=== PATIENT | male | born 1975 | race Caucasian/White ===

== ENCOUNTER 2020-11-19 09:21 | Outpatient (CLI) | payer MEDICARE, SELFPAY ==
[2020-11-19 10:57] LABS: Basophils % 0.8 %; Eosinophils # 0.2 10^3/uL (0.0-0.8); Eosinophils % 4.3 %; Hematocrit 41.3 % (42.0-52.0); Hemoglobin 13.9 g/dL (11.7-16.6); Lymphocytes # 0.8 10^3/uL (0.8-4.8); Lymphocytes % 16.5 %; Mean Corpuscular HGB Conc 33.7 g/dL (30.0-36.0); Mean Corpuscular Hemoglobin 30.6 pg (28.0-34.0); Mean Platelet Volume 10.8 fL (7.4-10.4); Monocytes # 0.3 10^3/uL (0.2-0.9); Neutrophils # 3.51 10^3/uL (1.8-7.7); Neutrophils % 72.2 %; Nucleated Red Blood Cells % 0 %; Platelet Count 55 10^3/cmm (130-400); Red Blood Count 4.54 10^6/uL (4.1-5.3); Red Cell Distribution Width 14.5 % (12.1-15.1); White Blood Count 4.9 10^3/uL (4.0-10.0)
--- NOTE | 2020-11-19 16:10 | ONC CON_ITS ---
Dr. Wyatt New Patient Note Patient: Jigar Connell Unit #: [id number]: [id number] Dicatated By: yNa Wyatt M.D.Date of Visit: November 19, 2020 Onc MED New Patient/Consult Referring Physician: Luisa Delgado History of Present Illness: Mr. 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 Patient has history of chronic back pain and arthritis for which he takes ibuprofen/hydrocodone-based pain medication from pain clinic, patient said because of liver he cannot take Tylenol. Patient is complaining of ecchymosis but no petechiae especially on upper extremities and lower extremities. Patient denies any more alcohol use, quit drinking about 5 years ago, smoked 1 pack a day, patient not aware whether he had large spleen or not. Patient denies any night sweats denies any weight loss denies any recurrent fever, denies any jaundice. Denies any nosebleed or gum bleed denies any melena or hematochezia Past Medical History: Mr. Connell's medical history consists of alcohol abuse, alcoholic cirrhosis, back pain, chronic obstructive pulmonary disease, degenerative disease of the spine, gastroesophageal reflux disease, and hypertension. Past Surgical History: There is no documented surgical history. Medications: Albuterol Sulfate Aerosol Powder, Breath Activated Inhalation, Atenolol 1 Tablet (of 50 mg) Oral daily, Folic Acid 1 Tablet (of 1 mg) Oral daily, Furosemide 1 Tablet (of 40 mg) Oral b.i.d., Gabapentin 1 Capsule (of 400 mg) Oral t.i.d. & at bedtime, HYDROcodone-Ibuprofen 1 Tablet (of 7.5-200 mg) Oral q 4 hours, Incruse Ellipta Aerosol Powder, Breath Activated Inhalation, K-Tab 1 Tablet (of 10 meq) Tablet, controlled release Oral b.i.d., Multivitamin Gummies Mens 1 Tablet Tablet, chewable Oral daily, Pantoprazole Sodium 1 Tablet (of 40 mg) Tablet, enteric coated Oral daily, Spironolactone 1 Tablet (of 50 mg) Oral daily, Tamsulosin HCl 1 Capsule (of 0.4 mg) Oral daily Allergies: Lisinopril, Penicillins, Sulfa Antibiotics, and Tylenol. Social History: Mr. Connell is legally . He is a daily smoker who smokes 0.5 packs/day. Recovering Alcoholic sober for 5 years. Family History: Mr. Connell's mother at age 81: DEMENTIA. Mr. Connell's father at age 62: myocardial infarction. Mr. Connell has 1 brother who is . He has 3 sisters: 2 alive, 1 . Review Of Symptoms: Review of Systems is not available for this patient. Vital Signs: Performed on November 19, 2020 11:22: 10, 8, 39.00 (HIGH), 2.22 sq.m, 67 in, 96 %, 97 /min, 18 /min, 144/72 mm(hg) (HIGH), 98.2 F (LOW), and 249 lbs (HIGH). Performance Status: 1 - No physically strenuous activity, but ambulatory and able to carry out light or sedentary work (e.g. office work, light house work). (ECOG) Physical Examination: ENMT - No mouth sores, no thrush, no jaundice no cervical lymphadenopathy, poor oral hygiene, Respiratory - Poor air entry otherwise clear, Cardiovascular - Regular rate and rhythm of heart, Abdomen - Soft, bowel sounds present, Extremities - No visible edema but old healing ecchymosis. Lab/Imaging: Most recent lab results are not available for this patient. 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 Other possibility could be chronic ITP or patient has history of heavy alcohol abuse in the past so primary marrow disorder like MDS but less likely especially with normal white blood count and hemoglobin. Or medication like lisinopril. Alcoholic liver cirrhosis diagnosing 2014 or 16 History of esophageal varices status post banding Chronic back pain now being managed by pain clinic Plan: . Discussed with patient regarding his labs white blood count 4.9 hemoglobin 13.9 hematocrit 41.3 platelets 55,000 with a normal differential Clinically, patient doing well with no new signs symptom suggestive of gross bleeding but patient has old healing ecchymosis which could be due to moderate thrombocytopenia but less likely as in patient with thrombocytopenia due to splenic sequestration usually they have young/large platelets which are more active than mature platelets but patient is taking ibuprofen which can affect platelet clumping thus ecchymosis. Patient was advised to stop taking ibuprofen but rely on hydrocodone alone and he need to wait for 2 weeks before he consider any dental procedure as NSAIDs affect platelets for the life which is about 10 to 14 days. , At this point we will get abdominal sonogram to assess spleen size and then patient return to clinic in 2 weeks with CBC. If his platelet count continues to drop, may consider bone marrow evaluation Signed By: Nya Wyatt M.D. <<Signature on File>>
== END 2020-11-19 09:22 | disposition home or self-care (01) ==
LOC: ONCMED 09:29
PROVIDERS: PCP Nurse Practitioner; Visit Provider Internal Medicine Hematology & Oncology
DX: D69.6 Thrombocytopenia, unspecified (principal); K70.30 Alcoholic cirrhosis of liver without ascites; I85.00 Esophageal varices without bleeding; G89.29 Other chronic pain; M54.5 Low back pain; Z79.899 Other long term (current) drug therapy
CPT/HCPCS: 85025; 99204

== ENCOUNTER 2022-10-27 10:58 | Emergency (ER) | payer MEDICARE, MEDICAID, SELFPAY ==
[2022-10-27] VITALS (18 sets, daily range): BP systolic 124–149; BP diastolic 57–87; PULSE 74–130; RESP 14–18; O2SAT 94–100; BMI 30.4
[2022-10-27 11:42] LABS: Basophils % 0.2 %; Eosinophils % 0.3 %; Hematocrit 43.7 % (42.0-52.0); Hemoglobin 14.9 g/dL (11.7-16.6); Lymphocytes # 0.5 10^3/uL (0.8-4.8); Lymphocytes % 4.4 %; Mean Corpuscular HGB Conc 34.1 g/dL (30.0-36.0); Mean Corpuscular Hemoglobin 30.9 pg (28.0-34.0); Mean Corpuscular Volume 90.7 fl (80-94); Monocytes # 0.6 10^3/uL (0.2-0.9); Monocytes % 4.8 %; Neutrophils # 11.09 10^3/uL (1.8-7.7); Neutrophils % 89.7 %; Nucleated Red Blood Cells % 0 %; Platelet Count 57 10^3/cmm (130-400); Red Blood Count 4.82 10^6/uL (4.1-5.3); White Blood Count 12.4 10^3/uL (4.0-10.0)
--- NOTE | 2022-10-27 12:00 | CTR_ITS ---
PROCEDURE INFORMATION: Exam: CT Abdomen And Pelvis With Contrast Exam date and time: 10/27/2022 2:09 PM Age: 47 years old Clinical indication: Abdominal pain; Generalized; Additional info: Cirrhosis, abd pain and distension TECHNIQUE: Imaging protocol: Computed tomography of the abdomen and pelvis with contrast. Radiation optimization: All CT scans at this facility use at least one of these dose optimization techniques: automated exposure control; mA and/or kV adjustment per patient size (includes targeted exams where dose is matched to clinical indication); or iterative reconstruction. Contrast material: OMNI 350; Contrast volume: 100 ml; Contrast route: INTRAVENOUS (IV); REPORTING DATA: Count of CT and Cardiac NM exams in prior 12 months: This patient has received 0 known CTs and 0 known cardiac nuclear medicine studies in the 12 months prior to the current study. COMPARISON: CT abdomen pelvis w con* [id number] 11/13/2016 7:04 AM RADIATION DOSE METRICS: Total DLP (mGy-cm): 730 FINDINGS: Lungs: There is a noncalcified pulmonary nodule in the right lower lobe visible on series 3, image 7 measuring 5 mm. Liver: The liver has a nodular surface and there is relative hypertrophy of the left and caudate lobe consistent with cirrhosis. There is multifocal nodular hyperenhancement involving the central aspect of the liver. The margins of the lesion are lobulated and ill-defined. The lesion measures up the 12 x 6 cm. Gallbladder and bile ducts: The gallbladder is distended. The wall is thin. No stones are seen. There is ectasia of the common bile duct and central intrahepatic ducts. Pancreas: There is moderate atrophy of the pancreas. Spleen: The spleen is markedly enlarged. Adrenal glands: The adrenal glands are unremarkable. Kidneys and ureters: The kidneys are unremarkable. No hydronephrosis or stones. No ureteral dilation. Stomach and bowel: There are large submucosal varices in the gastric fundus. There is a small volume of low-density fluid in the gastric lumen. There is diffuse gastric mucosal hyperemia and mild thickening. The small bowel is nondilated. There is marked mucosal thickening and mucosal hyperemia with surrounding mesenteric edema involving the distal ileum, sparing the terminal ileum. There is mild diffuse colonic mucosal thickening without pericolonic edema. Probable portal colopathy. There is mild distal descending and sigmoid colonic diverticulosis without evidence of diverticulitis. Appendix: The appendix is normal. Intraperitoneal space: Moderate ascites. There is no intraperitoneal free air. Vasculature: There is partial thrombus in the superior mesenteric vein and central aspect of the portal vein visible on axial series 3, image 30 through 39. The splenic vein is patent. There is no visible intrahepatic portal venous thrombus. The aorta is unremarkable. There is no aneurysm. Large submucosal varices at the gastric fundus. Lymph nodes: There is no lymphadenopathy in the retroperitoneum, mesentery, pelvis or inguinal regions. Urinary bladder: The urinary bladder is unremarkable. Reproductive: The prostate and seminal vesicles are unremarkable. Bones/joints: There is moderate degenerative disease in the lumbar spine. There is a focal disc protrusion at L4-L5 producing severe spinal stenosis. The pelvis and hips are unremarkable. Soft tissues: The abdominal wall is intact. CT/CT abdomen pelvis w con* [id number] IMPRESSION: 1. Marked distal ileitis, sparing the terminal ileum consistent with infectious or inflammatory enteritis. 2. Probable gastritis. 3. Cirrhosis with multifocal nodular hyperenhancement involving the central aspect of the liver suspicious for hepatocellular carcinoma. Recommend liver MRI. 4. Partial thrombosis of the superior mesenteric and portal veins without significant luminal narrowing. 5. Marked splenic enlargement. 6. Large submucosal varices in the gastric fundus. No sign of intraluminal bleeding. 7. Moderate ascites. 8. 5 mm right lower lobe pulmonary nodule.For patients at low risk (minimal or absent history of smoking and of other known risk factors), no routine follow-up is indicated. For patients at high risk (history of smoking or of other known risk factors), consider optional CT Chest at 12 months. (Reference: Frank) 9. Incidental findings above. REFERENCES: Frank Garza et al. Guidelines for Management of Incidental Pulmonary Nodules Detected on CT Images: From the Fleischner Society 2017. Radiology. 2017;284(1):228-243.
--- NOTE | 2022-10-27 12:03 | ED_ITS ---
HPI - Abdominal Pain General: Chief Complaint: Abdominal Pain Stated Complaint: ABDOMINAL PAIN/ LIVER FAILURE Time Seen by Provider: 10/27/22 10:59 History of Present Illness: Patient presents to the ER by EMS with complaints of upper abdominal pain. Patient now states the pain is all over the abdomen as well as distention and bloating. Patient does have a history of known alcoholic cirrhosis with thrombocytopenia. 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 She states this pain has started worsening this morning with no known cause. She did receive 100 of fentanyl and 10 of morphine IV per EMS. MD elicited complaint: abdominal pain Pertinent past history: other (Alcoholic cirrhosis and thrombocytopenia) Onset (ago): hour(s) (Started this morning) Pain Consistency: constant Location: Diffuse Severity: moderate Radiation: none Migration to: no migration Exacerbating factors: nothing Relieving factors: nothing Associated Symptoms: Reports nausea and vomiting; Denies chills, diarrhea, dysuria and fever(s) Treatments prior to arrival: other (7.5 mg of hydrocodone 4 times a day as well as 100 mcg of fentanyl and 10 mg morphine per EMS on route) Review of Systems General: Reports: 10 or more systems reviewed and unremarkable except in HPI and below Const: Denies: fever(s) or chills Eyes: Denies: change in vision or photophobia ENMT: Denies: throat pain or odynophagia Card: Denies: chest pain, palpitations or irregular heart rhythm Resp: Denies: dyspnea, productive cough or non-productive cough GI: Reports: abdominal pain, nausea and vomiting; Denies: diarrhea : Denies: flank pain, difficulty urinating or dysuria Musc: Denies: neck pain or back pain Skin/Breast: Denies: rash, pruritus or erythema Neuro: Denies: headache(s) or numbness in extremities PFS ED PFSH: Medical History Abnormal laboratory test Liver cirrhosis Thrombocytopenia Physical Exam Const: COMMON NORMALS: average body habitus, patient oriented x3, no limitations, healthy appearing, alert and well nourished HENMT: COMMON NORMALS: normocephalic, atraumatic, hearing grossly normal bilaterally, external ears normal, Normal external nose present and moist oral mucous membranes HEAD & SCALP: normocephalic and atraumatic NOSE: Normal external nose present EXTERNAL EAR: Yes external ears normal Eye: COMMON NORMALS: Equal, round and reactive pupils present, EOMs intact bilaterally, conjunctivae normal and no scleral icterus CONJUNCTIVA: Yes conjunctivae normal PUPIL: Yes Equal, round and reactive pupils present Neck/C-Spine: COMMON NORMALS: full ROM, no lymphadenopathy, supple, no meningeal signs, no JVD and Thyroid normal THYROID: Thyroid normal Lymph: LYMPHATIC: no lymphadenopathy noted Chest: COMMONS NORMALS: normal inspection of the chest and normal palpation of entire chest wall Resp: COMMON NORMALS: normal respiratory effort, No retractions, No use of accessory muscles and clear to auscultation bilaterally AUSCULTATION: clear to auscultation bilaterally Cardio: COMMON NORMALS: no JVD, regular rate, regular rhythm, S1 normal heart sound present and S2 normal heart sound present RATE: regular rate RHYTHM: regular rhythm HEART SOUNDS: S1 normal heart sound present and S2 normal heart sound present GI: COMMON NORMALS: Soft to palpation INSPECTION: Yes Anasarca and Yes abdominal distension AUSCULTATION: Yes normoactive bowel sounds PALPATION: Yes Soft to palpation, Yes Firmness to palpation present (GI) and Yes Tenderness to palpation present (GI) : COMMON NORMALS: Yes no CVA tenderness BLADDER/KIDNEY EXAM: Yes no CVA tenderness Back/Pelvis: COMMON NORMALS: no CVA tenderness Neuro: COMMON NORMALS: patient oriented x3 SENSORIUM/ORIENTATION: Yes alert MENINGEAL SIGNS: Yes no meningeal signs Course Vital Signs: Vital signs: Vital Signs Pulse Rate 122 H 10/27/22 20:20 Respiratory Rate 18 10/27/22 20:20 Blood Pressure 124/87 10/27/22 20:20 Pulse Oximetry 95 10/27/22 20:20 Oxygen Delivery Me thod Room Air 10/27/22 11:03 MDM - Abdominal Pain Medical Decision Making Patient presents with abdominal pain ascites and alcoholic cirrhosis. Physical exam was performed lab work was obtained which revealed a platelet count of 57, total bilirubin 2.1 AST [address] showed marked distal ileitis, cirrhosis with multi nodular enhancement suspicious for hepatocellular carcinoma. Partial thrombosis of superior mesenteric and portal veins, marked splenic enlargement, large submucosal varices in the gastric fundus, moderate ascites. Case was discussed with Dr. Phillips who thought he needed a liver biopsy and if he start ed bleeding from the varices we would have no way to treat him. She suggested we transfer him out. Patient is already [facility] a [facility] Differential Diagnosis Likely abdominal pain; Unlikely acute appendicitis, calculus of kidney, constipation, diverticulitis, endometriosis, gastroenteritis, pancreatitis or small bowel obstruction Medical Records I reviewed the patient's medical records. Lab Data I reviewed the patient's lab results. 10/27/22 11:15 10/27/22 12:44 Labs/Radiology: Radiology Impressions Abdomen/Pelvis CT 10/27/22 12:00 IMPRESSION: 1. Marked distal ileitis, sparing the terminal ileum consistent with infectious or inflammatory enteritis. 2. Probable gastritis. 3. Cirrhosis with multifocal nodular hyperenhancement involving the central aspect of the liver suspicious for hepatocellular carcinoma. Recommend liver MRI. 4. Partial thrombosis of the superior mesenteric and portal veins without significant luminal narrowing. 5. Marked splenic enlargement. 6. Large submucosal varices in the gastric fundus. No sign of intraluminal bleeding. 7. Moderate ascites. 8. 5 mm right lower lobe pulmonary nodule.For patients at low risk (minimal or absent history of smoking and of other known risk factors), no routine follow-up is indicated. For patients at high risk (history of smoking or of other known risk factors), consider optional CT Chest at 12 months. (Reference: Frank) 9. Incidental findings above. REFERENCES: Frank Garza, et al. Guidelines for Management of Incidental Pulmonary Nodules Detected on CT Images: From the Fleischner Society 2017. Radiology. 2017;284(1):228-243. Laboratory Results WBC 12.4 10^3/uL (4.0-10.0) H 10/27/22 11:15 RBC 4.82 10^6/uL (4.1-5.3) 10/27/22 11:15 Hgb 14.9 g/dL (11.7-16.6) 10/27/22 11:15 Hct 43.7 % (42.0-52.0) 10/27/22 11:15 MCV 90.7 fl (80-94) 10/27/22 11:15 MCH 30.9 pg (28.0-34.0) 10/27/22 11:15 MCHC 34.1 g/dL (30.0-36.0) 10/27/22 11:15 RDW 17.0 % (12.1-15.1) H 10/27/22 11:15 Plt Count 57 10^3/cmm (130-400) L 10/27/22 11:15 MPV TNP 10/27/22 11:15 Neut % (Auto) 89.7 % 10/27/22 11:15 Lymph % (Auto) 4.4 % 10/27/22 11:15 Rooks % (Auto) 4.8 % 10/27/22 11:15 Eos % (Auto) 0.3 % 10/27/22 11:15 Baso % (Auto) 0.2 % 10/27/22 11:15 Neut # (Auto) 11.09 10^3/uL (1.8-7.7) H 10/27/22 11:15 Lymph # (Auto) 0.5 10^3/uL (0.8-4.8) L 10/27/22 11:15 Rooks # (Auto) 0.6 10^3/uL (0.2-0.9) 10/27/22 11:15 Eos # (Auto) 0.0 10^3/uL (0.0-0.8) 10/27/22 11:15 Baso # (Auto) 0.0 10^3/uL (0.0-0.1) 10/27/22 11:15 Nucleated RBC % (auto) 0 % 10/27/22 11:15 Nucleated RBCs # 0.0 /100WBC 10/27/22 11:15 PT 17.30 SECONDS (12.1-14.9) H 10/27/22 12:44 INR 1.37 (0.8-1.2) H 10/27/22 12:44 APTT 26.9 SECONDS (23.9-36.7) 10/27/22 12:44 Sodium 137 mmol/L (136-145) 10/27/22 12:44 Potassium 3.0 mmol/L (3.5-5.1) L 10/27/22 12:44 Chloride 98 mmol/L (98-107) 10/27/22 12:44 Carbon Dioxide 26 mmol/L (22-29) 10/27/22 12:44 Anion Gap 16.0 (5-19) 10/27/22 12:44 BUN 11 mg/dL (6-20) 10/27/22 12:44 Creatinine 0.8 mg/dL (0.7-1.2) 10/27/22 12:44 GFR Calculation 102.7 mL/min (90-130) 10/27/22 12:44 Glucose 178 mg/dL (65-115) H 10/27/22 12:44 Calculated Osmolality 288 mOsm/kg (285-295) 10/27/22 12:44 Calcium 9.3 mg/dL (8.5-10.5) 10/27/22 12:44 Total Bilirubin 2.1 mg/dL (0.15-1.2) H 10/27/22 12:44 AST 44 U/L (0-40) H 10/27/22 12:44 ALT 60 U/L (0-41) H 10/27/22 12:44 Alkaline Phosphatase 93 U/L (40-130) 10/27/22 12:44 Total Protein 6.1 g/dL (6.6-8.7) L 10/27/22 12:44 Albumin 3.6 g/dL (3.5-5.2) 10/27/22 12:44 Globulin 2.5 g/dL (1.3-4.6) 10/27/22 12:44 Lipase 18 U/L (13-60) 10/27/22 12:44 Discharge Plan Discharge Patient Disposition: Xfer Short-Term Hosp Clinical Impression: Hepatocellular carcinoma, Superior mesenteric vein thrombosis, Portal vein thrombosis, Ascites, Liver cirrhosis Condition: Stable Discharge Orders: Transfer Out of Facility (Order); Ordered 10/27/22 Ordered By: Kenneth Post Referrals: Luisa Delgado FNP [Primary Care Provider] - Coding Level of Care Code ED Sports Physician for Enochg Tom
[2022-10-27] MEDS: ondansetron 2 mg/ML SDV 2 mL 4 MG IVP (13:07)
[2022-10-27] MEDS: morphine 4 mg/mL SDV 1 mL IVP ×3 (13:07→20:10)
--- NOTE | 2022-10-27 13:08 | PC.PHAR ---
Addendum entered by Jenelle Strauss 10/27/22 13:12: alternates breo and trelegy inhalers Original Note: pts family verified pts medications-pts family states the pts levothyroxine 25mcg daily was dced ext shows last filled 08/12/22 30d/s-pts family states they pt is still taking constulose 15ml tid family states the pt had build up ext shows last filled 08/13/22 30d/s-pts family states the pt is taking kcl 10meq bid ext shows last filled 08/23/22 90d/s 10meq tid-pts family states the pt alternates the incruse and trelegy inhalers-notes are made in the pharmacy comments
[2022-10-27 13:15] LABS: Alanine Aminotransferase 60 U/L (0-41); Albumin Level 3.6 g/dL (3.5-5.2); Alkaline Phosphatase 93 U/L (40-130); Aspartate Amino Transferase 44 U/L (0-40); Blood Urea Nitrogen 11 mg/dL (6-20); Calcium 9.3 mg/dL (8.5-10.5); Carbon Dioxide 26 mmol/L (22-29); Chloride 98 mmol/L (98-107); Globulin 2.5 g/dL (1.3-4.6); Glomerular Filtration Rate 102.7 mL/min (90-130); Glucose 178 mg/dL (65-115); Lipase 18 U/L (13-60); Osmolality Calculated 288 mOsm/kg (285-295); Sodium 137 mmol/L (136-145); Total Bilirubin 2.1 mg/dL (0.15-1.2); Total Protein 6.1 g/dL (6.6-8.7)
[2022-10-27 13:37] LABS: INR 1.37 (0.8-1.2); Partial Thromboplastin Time 26.9 SECONDS (23.9-36.7)
[2022-10-27] MEDS: sodium chloride 0.9% 1,000 ML 999 ML IV (13:39)
[2022-10-27] MEDS: metoclopramide 5 mg/mL SDV 2 mL 10 MG IVP (16:29)
[2022-10-27] MEDS: piperacillin-tazobactam 3.375 GM in sodium chloride 0.9% (plus) 50 ML IV (16:30)
--- NOTE | 2022-10-27 16:49 | PM.CONSULT ---
Providers/Reason For Consult Consulting Physician/Specialty*: Kylie Phillips MD/ Hospitalist Reason for Consult*: Gi bleed, SMV thrombosis Requesting Physician: Dr. Post/ ED Primary Care Provider: OLEG Edwards History of Present Illness History of Present Illness Jigar Connell is a 47 year old male with known history of liver cirrhosis, states that he follows with Dr. MARTÍNEZ in [place]. He presents to the emergency room today due to abdominal pain that has been bothering him over the past 2 days, especially worsened since last night. He is also complaining of bleeding bright red blood per rectum since yesterday. Denies any hematemesis. States that he has not had an appetite for many months. He has been consistently losing weight. His cirrhosis has been attributed to alcohol use previously. He has known chronic thrombocytopenia. CT of his abdomen and pelvis today has revealed advanced liver cirrhosis, hepatocellular carcinoma signs of portal hypertension, multiple varices, SMV thrombosis, enteritis. He does not have any past medical history of known cancer, the discovery of a possible hepatocellular carcinoma is new for him. Review of Systems General: Reports: 10 or more systems reviewed and unremarkable except in HPI and below Const: Denies: fever(s), chills or body aches Eyes: Denies: change in vision, blurry vision or photophobia ENMT: Reports: hoarseness; Denies: throat pain, enlarged tonsils, odynophagia or nasal congestion Card: Denies: chest pain, palpitations, irregular heart rhythm, edema, swelling of feet/ankles, lightheadedness, pre-syncope, dyspnea on exertion or orthopnea Resp: Denies: dyspnea, productive cough, non-productive cough, wheezing, stridor, pain on inspiration, change in phlegm color, hemoptysis or chest congestion GI: Denies: abdominal pain, nausea, vomiting, hematemesis, coffee ground emesis, dysphagia, heartburn, diarrhea, constipation, GI cramping, change in stool character, hematochezia or melena : Denies: flank pain, dysuria, urinary frequency, urinary urgency, urinary hesitancy or hematuria Musc: Denies: neck pain, back pain, extremity pain, joint swelling, joint warmth or deformity Neuro: Denies: headache(s), numbness in extremities, weakness in extremities, sensory changes, difficulty walking, frequent falls, dizziness, vertigo, behavioral changes, Slurred speech present or seizure-like activity Psych: Denies: anxiety, depression, suicidal ideation or homicidal ideation Endo: Denies: polyuria, polydipsia, tired all the time, cold intolerance or hot flashes Ollie/Lymph: Denies: easy bruising or easy bleeding Medications/Allergies Home Medications Medication Instructions Recorded Confirmed Last Taken Type hydrocodone 7.5 mg-ibuprofen 200 1 - 2 tab PO Q4H PRN Pain 11/13/20 10/27/22 Unknown History mg tablet albuterol sulfate 90 mcg/actuation 2 puff inhalation QID PRN 10/27/22 10/27/22 Unknown History aerosol inhaler Shortness Of Breath atenolol 50 mg tablet 50 mg PO DAILY 10/27/22 10/27/22 Unknown History cyclobenzaprine 10 mg tablet 10 mg PO Q8H PRN Muscle Spasm 10/27/22 10/27/22 Unknown History fluticasone fur. 200 mcg-umeclid 1 inh inhalation DAILY 10/27/22 10/27/22 Unknown History 62.5 mcg-vilant 25 mcg inhalat.powder (Trelegy Ellipta) fluticasone furoate 200 1 inh inhalation DAILY 10/27/22 10/27/22 Unknown History mcg-vilanterol 25 mcg/dose inhalation powder (Breo Ellipta) fluticasone propionate 50 2 spray intranasal DAILY 10/27/22 10/27/22 Unknown History mcg/actuation nasal spray,suspension folic acid 1 mg tablet 1 mg PO DAILY 10/27/22 10/27/22 Unknown History furosemide 40 mg tablet 40 mg PO BID 10/27/22 10/27/22 Unknown History gabapentin 400 mg capsule 400 mg PO Q6H 10/27/22 10/27/22 Unknown History lactulose 10 gram/15 mL oral 15 ml PO TID 10/27/22 10/27/22 Unknown History solution (Constulose) loratadine 10 mg tablet 10 mg PO QAM 10/27/22 10/27/22 Unknown History metformin 500 mg tablet,extended 500 mg PO BID 10/27/22 10/27/22 Unknown History release 24 hr multivitamin 1 tab PO DAILY 10/27/22 10/27/22 Unknown History pantoprazole 40 mg tablet,delayed 40 mg PO DAILY 10/27/22 10/27/22 Unknown History release yzixeilfvwnys-UJ-khkqwutryqcnw-guaif 20 ml PO BEDTIME 10/27/22 10/27/22 Unknown History 10 mg-20 mg-650 mg/20 mL oral liq (Zlqk-Uid-Znua Throat) potassium chloride 10 mEq 10 meq PO BID 10/27/22 10/27/22 Unknown History tablet,extended release ropinirole 2 mg tablet 2 mg PO TID 10/27/22 10/27/22 Unknown History spironolactone 50 mg tablet 50 mg PO DAILY 10/27/22 10/27/22 Unknown History tamsulosin 0.4 mg capsule 0.4 mg PO BID 10/27/22 10/27/22 Unknown History testosterone cypionate 200 mg/mL 200 mg IM .EVERY 3 WEEKS 10/27/22 10/27/22 Unknown History intramuscular oil umeclidinium 62.5 mcg/actuation 1 inh inhalation DAILY 10/27/22 10/27/22 Unknown History blister powder for inhalation (Incruse Ellipta) Allergies Allergy/AdvReac Type Severity Reaction Status Date / Time lisinopril Allergy unk Verified 10/27/22 12:53 Penicillins Allergy unk Verified 10/27/22 12:53 sulfamethoxazole Allergy unk Verified 10/27/22 12:53 [From Bactrim] trimethoprim [From Bactrim] Allergy unk Verified 10/27/22 12:53 PFSH Acute PFSH: Medical History (Updated 10/27/22 @ 16:58 by Kylie Phillips MD) Abnormal laboratory test Liver cirrhosis Thrombocytopenia Vitals/I&O/Wt Last Vital Signs Pulse 74 10/27/22 11:03 BP 138/61 10/27/22 13:00 Pulse Ox 97 10/27/22 16:30 O2 Del Method Room Air 10/27/22 11:03 10/27/22 10/27/22 10/27/22 06:59 14:59 22:59 Intake Total 1000 / 1000 Balance 1000 / 1000 Weight last 48 hrs Weight 90.718 kg Physical Exam Narrative: General: No acute distress, AO x3 HEENT: PERRLA, pupils bilaterally equal and reactive, pallors not present Chest: Normal vesicular breath sounds, no added sounds, equal good air entry bilaterally CVS: S1-S2 regular, no murmurs, no tachycardia, no gallops, no rubs Abdomen: Soft, distended, nontender Neuro: No focal deficits, no facial deformity, AO x3, power 5/5 in all limbs Extremities: Data 10/27/22 11:15 10/27/22 12:44 Other data: Radiology Impressions Abdomen/Pelvis CT 10/27/22 12:00 IMPRESSION: 1. Marked distal ileitis, sparing the terminal ileum consistent with infectious or inflammatory enteritis. 2. Probable gastritis. 3. Cirrhosis with multifocal nodular hyperenhancement involving the central aspect of the liver suspicious for hepatocellular carcinoma. Recommend liver MRI. 4. Partial thrombosis of the superior mesenteric and portal veins without significant luminal narrowing. 5. Marked splenic enlargement. 6. Large submucosal varices in the gastric fundus. No sign of intraluminal bleeding. 7. Moderate ascites. 8. 5 mm right lower lobe pulmonary nodule.For patients at low risk (minimal or absent history of smoking and of other known risk factors), no routine follow-up is indicated. For patients at high risk (history of smoking or of other known risk factors), consider optional CT Chest at 12 months. (Reference: Frank) 9. Incidental findings above. REFERENCES: Frank Garza, et al. Guidelines for Management of Incidental Pulmonary Nodules Detected on CT Images: From the Fleischner Society 2017. Radiology. 2017;284(1):228-243. Laboratory Results WBC 12.4 10^3/uL (4.0-10.0) H 10/27/22 11:15 RBC 4.82 10^6/uL (4.1-5.3) 10/27/22 11:15 Hgb 14.9 g/dL (11.7-16.6) 10/27/22 11:15 Hct 43.7 % (42.0-52.0) 10/27/22 11:15 MCV 90.7 fl (80-94) 10/27/22 11:15 MCH 30.9 pg (28.0-34.0) 10/27/22 11:15 MCHC 34.1 g/dL (30.0-36.0) 10/27/22 11:15 RDW 17.0 % (12.1-15.1) H 10/27/22 11:15 Plt Count 57 10^3/cmm (130-400) L 10/27/22 11:15 MPV TNP 10/27/22 11:15 Neut % (Auto) 89.7 % 10/27/22 11:15 Lymph % (Auto) 4.4 % 10/27/22 11:15 [place] % (Auto) 4.8 % 10/27/22 11:15 Eos % (Auto) 0.3 % 10/27/22 11:15 Baso % (Auto) 0.2 % 10/27/22 11:15 Neut # (Auto) 11.09 10^3/uL (1.8-7.7) H 10/27/22 11:15 Lymph # (Auto) 0.5 10^3/uL (0.8-4.8) L 10/27/22 11:15 [place] # (Auto) 0.6 10^3/uL (0.2-0.9) 10/27/22 11:15 Eos # (Auto) 0.0 10^3/uL (0.0-0.8) 10/27/22 11:15 Baso # (Auto) 0.0 10^3/uL (0.0-0.1) 10/27/22 11:15 Nucleated RBC % (auto) 0 % 10/27/22 11:15 Nucleated RBCs # 0.0 /100WBC 10/27/22 11:15 PT 17.30 SECONDS (12.1-14.9) H 10/27/22 12:44 INR 1.37 (0.8-1.2) H 10/27/22 12:44 APTT 26.9 SECONDS (23.9-36.7) 10/27/22 12:44 Sodium 137 mmol/L (136-145) 10/27/22 12:44 Potassium 3.0 mmol/L (3.5-5.1) L 10/27/22 12:44 Chloride 98 mmol/L (98-107) 10/27/22 12:44 Carbon Dioxide 26 mmol/L (22-29) 10/27/22 12:44 Anion Gap 16.0 (5-19) 10/27/22 12:44 BUN 11 mg/dL (6-20) 10/27/22 12:44 Creatinine 0.8 mg/dL (0.7-1.2) 10/27/22 12:44 GFR Calculation 102.7 mL/min (90-130) 10/27/22 12:44 Glucose 178 mg/dL (65-115) H 10/27/22 12:44 Calculated Osmolality 288 mOsm/kg (285-295) 10/27/22 12:44 Calcium 9.3 mg/dL (8.5-10.5) 10/27/22 12:44 Total Bilirubin 2.1 mg/dL (0.15-1.2) H 10/27/22 12:44 AST 44 U/L (0-40) H 10/27/22 12:44 ALT 60 U/L (0-41) H 10/27/22 12:44 Alkaline Phosphatase 93 U/L (40-130) 10/27/22 12:44 Total Protein 6.1 g/dL (6.6-8.7) L 10/27/22 12:44 Albumin 3.6 g/dL (3.5-5.2) 10/27/22 12:44 Globulin 2.5 g/dL (1.3-4.6) 10/27/22 12:44 Lipase 18 U/L (13-60) 10/27/22 12:44 A&P Assessment and plan (1) Transaminitis: (2) Gastric varices: (3) Splenomegaly: (4) Superior mesenteric vein thrombosis: (5) Portal vein thrombosis: (6) Hepatocellular carcinoma: (7) GI bleed: (8) Thrombocytopenia: (9) Liver cirrhosis: Plan 47-year-old male with known liver cirrhosis, longstanding thrombocytopenia, currently presenting to the hospital with increased abdominal pain since last night and GI bleeding by way of bright red blood per rectum. CT of his abdomen and pelvis shows extensive liver cirrhosis, likely hepatocellular carcinoma, signs of portal hypertension with gastric varices, ascites, and SMV and portal venous thrombosis. His enteritis appears to be nonspecific. Patient does not have any correlating symptoms of diarrhea. Cause of enteritis may or may not be infectious. Suspect that this is related to underlying portal hypertension. Cannot exclude bowel ischemia. No current lactate is available, will order now. In a known cirrhotic with GI bleed, can continue antibiotics for now. Given the discovery of SMV and portal venous thrombosis, ideally patient needs to be placed on anticoagulation for treatment, [place] [id number],, elevated INR of 1.37 and ongoing GI bleeding potentially from a variceal source,, high risk anticoagulation would best be initiated at an [facility] with available GI capabilities, where there may be means to control a potentially fatal variceal bleed. Would recommend patient transfer to a higher center with GI capability. A liver biopsy would additionally need to be considered given the discovery of potential hepatocellular carcinoma as noted on imaging. Above plan of care was discussed with the patient. He wishes to discuss with his sister regarding transfer. He did ask me what his prognosis would be should he decline to be treated today and return home with pain control only. I have discussed quite frankly with him that he is at a high risk of worsening GI bleeding which could lead to hemodynamic instability and significant morbidity and mortality. Untreated portal vein thrombosis and underlying liver malignancy are added risk factors to mortality. Consult Attestations Medical Necessity Statement: recommend transfer to center with availability of GI physician and services Coding Level of Care Code Acute Code for Chg Fwd Diagnoses Transaminitis R74.01 Gastric varices I86.4 Splenomegaly R16.1 Superior mesenteric vein thrombosis K55.069 Portal vein thrombosis I81 Hepatocellular carcinoma C22.0 GI bleed K92.2 Thrombocytopenia D69.6 Liver cirrhosis K74.60
== END 2022-10-27 20:22 | disposition short-term general hospital (02) ==
PROVIDERS: Emergency Provider Emergency Medicine; PCP Nurse Practitioner
DX: C22.0 Liver cell carcinoma (principal); I81 Portal vein thrombosis; K55.059 Acute (reversible) ischemia of intestine, part and extent unspecified; K74.60 Unspecified cirrhosis of liver; R18.8 Other ascites
CPT/HCPCS: 36415; 74177; 80053; 83690; 85025; 85610; 85730; 96365; 96366; 96375; 96376; 99285; J2270; J2405; J2543; J2765; J7030; Q9967

== ENCOUNTER 2024-01-17 22:19 | Emergency (ER) | payer MEDICARE, SELFPAY ==
[2024-01-17 22:20] VITALS: BP 130/83; PULSE 118; RESP 18; TEMP 36.6; O2SAT 99; BMI 28.8
--- NOTE | 2024-01-17 22:24 | XRR_ITS ---
PROCEDURE INFORMATION: Exam: XR Chest Exam date and time: 01/17/2024 10:25 PM Age: 48 years old Clinical indication: Pain; Chest pressure; Additional info: Chest pain TECHNIQUE: Imaging protocol: Radiologic exam of the chest. Views: 1 view. COMPARISON: CT abdomen pelvis w con* [id number] 10/27/2022 2:09 PM FINDINGS: Lungs: Unremarkable. No consolidation. Pleural spaces: Unremarkable. No pleural effusion. No pneumothorax. Heart/Mediastinum: Unremarkable. No cardiomegaly. Bones/joints: Unremarkable. XR/XR chest 1V portable [id number] IMPRESSION: No acute findings.
--- NOTE | 2024-01-17 22:25 | ECG_ITS ---
[facility] Test Date: 2024-01-17 Pat Name: Jigar Connell Department: Room: Gender: Male [employer]ing [employer]: : 1975 Requested By: Kenneth Post Order Number: [id number] Linda MD: Matheus Bell M.D. Measurements Intervals [place] Rate: 116 P: 8 [place]: 124 QRS: -15 QRSD: 81 T: 9 QT: 306 QTc: 425 Interpretive Statements SINUS TACHYCARDIA LEFT VENTRICULAR HYPERTROPHY AND ST-T CHANGE [VOLTAGE CRITERIA PLUS ST/T ABNORMALITY] POSSIBLE SEPTAL MYOCARDIAL INFARCTION , PROBABLY OLD [30 ms Q WAVE IN V1/V2] Compared to ECG 11/13/2016 06:35:54 ST (T wave) deviation now present Myocardial infarct finding now present Sinus rhythm no longer present Electronically Signed On 01-18-2024 10:31:52 CDT by Matheus Bell M.D. [email or web address]
[2024-01-17 22:30] VITALS: PULSE 118; RESP 13; O2SAT 99
[2024-01-17 22:45] LABS: Basophils # 0.1 10^3/uL (0.0-0.1); Basophils % 0.5 %; Eosinophils # 0.1 10^3/uL (0.0-0.8); Eosinophils % 0.4 %; Hematocrit 32.9 % (37-53); Lymphocytes # 0.6 10^3/uL (0.8-4.8); Lymphocytes % 3.6 %; Mean Corpuscular HGB Conc 28.9 g/dL (30-55); Mean Corpuscular Hemoglobin 21.6 pg (27-33); Mean Corpuscular Volume 74.8 fl (82-101); Mean Platelet Volume 10.9 fL (7.4-10.4); Monocytes # 1.3 10^3/uL (0.2-0.9); Monocytes % 7.6 %; Neutrophils # 14.99 10^3/uL (1.8-7.7); Neutrophils % 87.4 %; Nucleated Red Blood Cells % 0 %; Platelet Count 103 10^3/cmm (157-399); Red Cell Distribution Width 19.3 % (12.1-15.1); White Blood Count 17.12 10^3/uL (3.29-11.43)
--- NOTE | 2024-01-17 22:52 | CTR_ITS ---
PROCEDURE INFORMATION: Exam: CT Chest With Contrast; Diagnostic Exam date and time: 01/17/2024 11:13 PM Age: 48 years old Clinical indication: Vomiting; Abdominal pain; Generalized; Other: Chest pain, abd pain thrombocytopenia, leukocytosis; Chest pressure TECHNIQUE: Imaging protocol: Diagnostic computed tomography of the chest with contrast. Radiation optimization: All CT scans at this facility use at least one of these dose optimization techniques: automated exposure control; mA and/or kV adjustment per patient size (includes targeted exams where dose is matched to clinical indication); or iterative reconstruction. Contrast material: OMNI 350; Contrast volume: 100 ml; Contrast route: INTRAVENOUS (IV); COMPARISON: CR (CHEST, ) 01/17/2024 10:25 PM RADIATION DOSE METRICS: Total DLP (mGy-cm): 1114.36 FINDINGS: Trachea: Central airways are patent. Lungs: No focal consolidations. Pleural spaces: Unremarkable. No pneumothorax. No pleural effusion. Heart: Unremarkable. No cardiomegaly. No pericardial effusion. Lymph nodes: Unremarkable. No enlarged lymph nodes. Vasculature: Unremarkable. No aortic aneurysm. Bones/joints: Unremarkable. No acute fracture. Soft tissues: Unremarkable. PROCEDURE INFORMATION: Exam: CT Abdomen And Pelvis With Contrast Exam date and time: 01/17/2024 11:13 PM Age: 48 years old Clinical indication: Vomiting; Abdominal pain; Generalized; Other: Chest pain, abd pain thrombocytopenia, leukocytosis; Chest pressure TECHNIQUE: Imaging protocol: Computed tomography of the abdomen and pelvis with contrast. Radiation optimization: All CT scans at this facility use at least one of these dose optimization techniques: automated exposure control; mA and/or kV adjustment per patient size (includes targeted exams where dose is matched to clinical indication); or iterative reconstruction. Contrast material: OMNI 350; Contrast volume: 100 ml; Contrast route: INTRAVENOUS (IV); COMPARISON: CT abdomen pelvis w con* [id number] 10/27/2022 2:09 PM RADIATION DOSE METRICS: Total DLP (mGy-cm): 1114.36 FINDINGS: Liver: Cirrhotic morphology of the liver. Hypoattenuating focus within the central aspect of the liver which may represent transient hepatic perfusion differences versus a mass lesion. Gallbladder and biliary ducts: There is gallbladder wall thickening with a mild amount of pericholecystic fluid which may be secondary to fluid overload /cirrhosis versus cholecystitis. No gallstones visualized. Pancreas: Normal. No ductal dilation. Spleen: Splenomegaly measuring up to 19.9 cm. Adrenal glands: Normal. No mass. Kidneys and ureters: Duplicated left renal collecting system. No hydronephrosis. Stomach and bowel: Diverticulosis of the distal colon. There is diffuse colonic wall thickening with pericolonic inflammatory changes, concerning for colitis. Appendix: No evidence of appendicitis. Intraperitoneal space: Moderate volume ascites. Vasculature: Prominent splenic , gastric, and esophageal varices. Moderate atherosclerotic calcifications. Chronic portal venous thrombosis. Lymph nodes: Scattered subcentimeter lymph nodes. Urinary bladder: Unremarkable as visualized. Reproductive: Unremarkable as visualized. Bones/joints: Moderate multilevel spondylosis. Soft tissues: Unremarkable. CT/CT chest abdpel w/*[id number] IMPRESSION: No acute findings within the chest. IMPRESSION: 1. Cirrhotic liver with sequelae of portal hypertension including splenomegaly and splenic, gastric, and esophageal varices. Chronic portal venous thrombosis. 2. Diffuse colonic wall thickening with pericolonic inflammatory changes, concerning for colitis. 3. Moderate volume ascites. 4. There is gallbladder wall thickening with a mild amount of pericholecystic fluid which may be secondary to fluid overload /cirrhosis versus cholecystitis. No gallstones visualized. 5. Hypoattenuating focus within the central aspect of the liver which may represent transient hepatic perfusion differences versus a mass lesion. This was also visualized on prior CT abdomen and pelvis October 27, 2022. Recommend further evaluation with abdominal MRI.
[2024-01-17 23:00] VITALS: BP 161/78; PULSE 115; O2SAT 98
[2024-01-17 23:01] VITALS: RESP 18
[2024-01-17 23:01] LABS: Alanine Aminotransferase 33 U/L (0-41); Albumin Level 3.5 g/dL (3.5-5.2); Alkaline Phosphatase 140 U/L (40-130); Blood Urea Nitrogen 31 mg/dL (6-20); Calcium 8.7 mg/dL (8.5-10.5); Carbon Dioxide 25 mmol/L (22-29); Chloride 104 mmol/L (98-107); Creatinine Clr Calc Pharmacy 117.9894; Globulin 2.3 g/dL (1.3-4.6); Glomerular Filtration Rate 102.3 mL/min (90-130); Glucose 283 mg/dL (65-115); Lipase 17 U/L (13-60); Magnesium 2.1 mg/dL (1.7-2.3); Osmolality Calculated 309 mOsm/kg (285-295); Sodium 141 mmol/L (136-145); Total Bilirubin 2.5 mg/dL (0.15-1.2); Total Protein 5.8 g/dL (6.6-8.7)
[2024-01-17] MEDS: morphine 4 mg/mL SDV 1 mL IVP (23:01)
[2024-01-17] MEDS: ondansetron 2 mg/ML SDV 2 mL 4 MG IVP (23:07)
[2024-01-17] MEDS: sodium chloride 0.9% 1,000 ML 999 ML IV (23:07)
[2024-01-17 23:08] LABS: Anion Gap 16.5 (5-19); Aspartate Amino Transferase 37 U/L (0-40); Potassium 4.5 mmol/L (3.5-5.1)
[2024-01-17 23:09] LABS: Troponin(5th) Baseline 94 ng/L (0-15)
--- NOTE | 2024-01-17 23:14 | ED_ITS ---
HPI - Chest Pain 2 General: Chief Complaint: Chest Pain Stated Complaint: CP Time Seen by Provider: 01/17/24 22:23 History of Present Illness: Patient presents to the ER with complaints of chest pain earlier today. Denies having abdominal pain primarily in his right upper quadrant but diffusely also. Patient said he when he called EMS his heart rate 180 bpm range EMS gave him 20 mg Cardizem, 4 mg Zofran, 2 mg of morphine his heart rate has improved at 218 bpm of sinus tach But abdominal pain is still there, . Patient does have a history of thrombocytopenia and liver cirrhosis, as well as transaminitis, gastric varices, superior mesenteric vein thrombosis Review of Systems 2 General: Reports: 10 or more systems reviewed and unremarkable except in HPI and below PFSH ED 2 PFSH: Medical History Thrombocytopenia Liver cirrhosis Abnormal laboratory test Physical Exam 2 Const: COMMON NORMALS: no acute distress, average body habitus, patient oriented x3, no limitations, healthy appearing, alert and well nourished HENMT: COMMON NORMALS: normocephalic, atraumatic, hearing grossly normal bilaterally, external ears normal, Normal external nose present and moist oral mucous membranes HEAD & SCALP: normocephalic and atraumatic NOSE: Normal external nose present EXTERNAL EAR: Yes external ears normal Neck/C-Spine: COMMON NORMALS: full ROM, no lymphadenopathy, supple, no meningeal signs, no JVD and Thyroid normal THYROID: Thyroid normal Chest: COMMONS NORMALS: normal inspection of the chest and normal palpation of entire chest wall Resp: COMMON NORMALS: normal respiratory effort, No retractions, No use of accessory muscles and clear to auscultation bilaterally AUSCULTATION: clear to auscultation bilaterally Cardio: COMMON NORMALS: no JVD, regular rhythm, S1 normal heart sound present, S2 normal heart sound present, No gallops present (Cardio) and No clicks present (Cardio); negative for regular rate (Sinus tach) RATE: abnormal rate (Sinus tach) R HYTHM: regular rhythm HEART SOUNDS: S1 normal heart sound present and S2 normal heart sound present GI: COMMON NORMALS: Normal to inspection, nondistended, normoactive bowel sounds present, Soft to palpation, No hepatosplenomegaly present and no masses; negative for non-tender (Tender to palpate right upper quadrant and epigastric area) PALPATION: Yes Soft to palpation and Yes No hepatosplenomegaly present Neuro: COMMON NORMALS: patient oriented x3 SENSORIUM/ORIENTATION: Yes alert MENINGEAL SIGNS: Yes no meningeal signs Course 2 Vital Signs: Vital signs: Vital Signs Temperature 97.8 F 01/17/24 22:20 Pulse Rate 108 H 01/18/24 00:26 Respiratory Rate 18 01/18/24 00:51 Blood Pressure 163/82 01/18/24 00:26 Pulse Oximetry 99 01/18/24 00:26 Oxygen Delivery Me thod Room Air 01/18/24 00:01 MDM - Chest Pain Medical Decision Making Discussed case with Dr. Miles who thought he may need to go back to [place] to the GI doctor especially since he has these multiple varices portal hypertension and now he may have cholecystitis and colitis on top of it. Differential Diagnosis Unlikely acute massive pulmonary embolism, acute respiratory failure, acute myocardial infarction, cardiac arrest or sudden cardiac Medical Records I reviewed the patient's medical records. Lab Data I reviewed the patient's lab results. 01/17/24 22:25 01/17/24 22:25 Radiology Impressions Chest X-Ray 01/17/24 22:24 IMPRESSION: No acute findings. Chest/Abdomen/Pelvis CT 01/17/24 22:52 IMPRESSION: No acute findings within the chest. IMPRESSION: 1. Cirrhotic liver with sequelae of portal hypertension including splenomegaly and splenic, gastric, and esophageal varices. Chronic portal venous thrombosis. 2. Diffuse colonic wall thickening with pericolonic inflammatory changes, concerning for colitis. 3. Moderate volume ascites. 4. There is gallbladder wall thickening with a mild amount of pericholecystic fluid which may be secondary to fluid overload /cirrhosis versus cholecystitis. No gallstones visualized. 5. Hypoattenuating focus within the central aspect of the liver which may represent transient hepatic perfusion differences versus a mass lesion. This was also visualized on prior CT abdomen and pelvis October 27, 2022. Recommend further evaluation with abdominal MRI. Laboratory Results WBC 17.12 10^3/uL (3.29-11.43) H 01/17/24 22:25 RBC 4.40 10^6/uL (3.85-5.65) 01/17/24 22: Hgb 9.50 g/dL (11.27-16.99) L 01/17/24 22: Hct 32.9 % (37-53) L 01/17/24 22: MCV 74.8 fl (82-101) L 01/17/24 22: MCH 21.6 pg (27-33) L 01/17/24 22: MCHC 28.9 g/dL (30-55) L 01/17/24 22: RDW 19.3 % (12.1-15.1) H 01/17/24 22: Plt Count 103 10^3/cmm (157-399) L 01/17/24 22: MPV 10.9 fL (7.4-10.4) H 01/17/24 22: Neut % (Auto) 87.4 % 01/17/24: Lymph % (Auto) 3.6 % 01/17/24: Coke % (Auto) 7.6 % 01/17/24 22: Eos % (Auto) 0.4 % 01/17/24 22: Baso % (Auto) 0.5 % 01/17/24: Neut # (Auto) 14.99 10^3/uL (1.8-7.7) H 01/17/24: Lymph # (Auto) 0.6 10^3/uL (0.8-4.8) L 01/17/24 22: Coke # (Auto) 1.3 10^3/uL (0.2-0.9) H 01/17/24 22: Eos # (Auto) 0.1 10^3/uL (0.0-0.8) 01/17/24 22: Baso # (Auto) 0.1 10^3/uL (0.0-0.1) 01/17/24: Nucleated RBC % (auto) 0 % 01/17/24: Nucleated RBCs # 0.0 /100WBC 01/17/24 22: Sodium 141 mmol/L (136-145) 01/17/24 22: Potassium 4.5 mmol/L (3.5-5.1) 01/17/24 22:25 Chloride 104 mmol/L (98-107) 01/17/24 22:25 Carbon Dioxide 25 mmol/L (22-29) 01/17/24 22:25 Anion Gap 16.5 (5-19) 01/17/24 22:25 BUN 31 mg/dL (6-20) H 01/17/24 22:25 Creatinine 0.8 mg/dL (0.7-1.2) 01/17/24 22:25 GFR Calculation 102.3 mL/min (90-130) 01/17/24 22:25 Glucose 283 mg/dL (65-115) H 01/17/24 22:25 Calculated Osmolality 309 mOsm/kg (285-295) H 01/17/24 22:25 Lactic Acid 3.1 mmol/L (0.5-2.2) H 01/17/24 22:25 Calcium 8.7 mg/dL (8.5-10.5) 01/17/24 22:25 Magnesium 2.1 mg/dL (1.7-2.3) 01/17/24 22:25 Total Bilirubin 2.5 mg/dL (0.15-1.2) H 01/17/24 22:25 AST 37 U/L (0-40) 01/17/24 22:25 ALT 33 U/L (0-41) 01/17/24 22:25 Alkaline Phosphatase 140 U/L (40-130) H 01/17/24 22:25 Ammonia 48 umol/L (16-60) 01/18/24 00:15 Troponin T Baseline 94 ng/L (0-15) H 01/17/24 22:25 Troponin T 120 Minute 105.1 ng/L (0-15) H 01/18/24 00:15 Delta Troponin T 11.1 ABS# (0-10) H* 01/18/24 00:15 Total Protein 5.8 g/dL (6.6-8.7) L 01/17/24 22:25 Albumin 3.5 g/dL (3.5-5.2) 01/17/24 22:25 Globulin 2.3 g/dL (1.3-4.6) 01/17/24 22:25 Lipase 17 U/L (13-60) 01/17/24 22:25 Procalcitonin 0.41 ng/mL (0-0.5) 01/17/24 22:25 All radiology interpretation(s) finalized by discharge Discharge Plan Discharge Patient Disposition: Left Against Medical Advice Clinical Impression: Left against medical advice, Thrombocytopenia, Hx of leukocytosis, Colitis Liver cirrhosis Qualifiers: Hepatic cirrhosis type: unspecified hepatic cirrhosis Ascites presence: with ascites Qualified Code(s): K74.60 - Unspecified cirrhosis of liver Abdominal pain Qualifiers: Abdominal location: right upper quadrant Qualified Code(s): R10.11 - Right upper quadrant pain Condition: Stable Prescriptions: New metronidazole 500 mg tablet 500 mg PO Q8H Qty: 30 0RF ciprofloxacin HCl 500 mg tablet 500 mg PO Q12H Qty: 20 0RF No Action hydrocodone-ibuprofen 7.5-200 mg tablet 1 - 2 tab PO Q4H MDD 6 tabs PRN (Reason: Pain) cyclobenzaprine 10 mg tablet 10 mg PO Q8H PRN (Reason: Muscle Spasm) furosemide 40 mg tablet 40 mg PO BID gabapentin 400 mg capsule 400 mg PO Q6H potassium chloride 10 mEq tablet extended release 10 meq PO BID tamsulosin 0.4 mg capsule 0.4 mg PO BID ropinirole 2 mg tablet 2 mg PO TID pantoprazole 40 mg tablet,delayed release (DR/EC) 40 mg PO DAILY folic acid 1 mg tablet 1 mg PO DAILY testosterone cypionate 200 mg/mL oil 200 mg IM .EVERY 3 WEEKS Rx Instructions: due to get 10/30/22 albuterol sulfate 90 mcg/actuation HFA aerosol inhaler 2 puff INHALATION QID PRN (Reason: Shortness Of Breath) fluticasone propionate 50 mcg/actuation spray,suspension 2 spray INTRANASAL DAILY metformin 500 mg tablet extended release 24 hr 500 mg PO BID atenolol 50 mg tablet 50 mg PO DAILY loratadine 10 mg tablet 10 mg PO QAM spironolactone 50 mg tablet 50 mg PO DAILY Constulose 10 gram/15 mL solution 15 ml PO TID Incruse Ellipta 62.5 mcg/actuation blister with device 1 inh INHALATION DAILY Breo Ellipta 200-25 mcg/dose blister with device 1 inh INHALATION DAILY Rx Instructions: alternates with trelegy Trelegy Ellipta 200-62.5-25 mcg blister with device 1 inh INHALATION DAILY Rx Instructions: alternates with breo multivitamin Tablet 1 tab PO DAILY Psta-Wxf-Tifs Throat 10-20-650 mg/20 mL Liquid 20 ml PO BEDTIME Referrals: Luisa Delgado FNP [Primary Care Provider] - 1-3 days Patient Instructions: Abdominal Pain (ED), Against Medical Advice (ED), Colitis (ED), Thrombocytopenia Activity Restrictions/Additional Instructions: During your ER visit we found you have colitis which may be an infection or inflammation of the colon, more than your normal irritation of your liver and gallbladder. This may be a surgical candidate to have to have your gallbladder removed we are on for sure at this time. Platelets are low but this may be chronic for you, your troponin which is a protein released from your heart when it is under stress and irritated is high and it went even higher. Any 1 of these may be life-threatening this increases your risk for disability and even . If any of your symptoms worsen please feel free to return to the nearest ER immediately. We have called some antibiotics into your pharmacy which may cover you from a colitis standpoint please take them as directed. Coding Level of Care Code ED Drug Abuse Technician for Junie Santos
[2024-01-17] MEDS: iohexol 350 mg/mL 500 mL Btl (per mL) IV (23:18)
[2024-01-17 23:19] VITALS: BP 130/83; PULSE 118; RESP 19; O2SAT 99
[2024-01-17 23:35] VITALS: BP 162/73; PULSE 122; RESP 20; O2SAT 99
[2024-01-17 23:56] LABS: Lactic Sepsis W/Reflex 3.1 mmol/L (0.5-2.2)
[2024-01-18 00:01] VITALS: BP 163/82; PULSE 112; RESP 14; O2SAT 99
[2024-01-18 00:01] LABS: Procalcitonin 0.41 ng/mL (0-0.5)
[2024-01-18] MEDS: sodium chloride 0.9% 1,000 ML 999 ML IV (00:25)
[2024-01-18 00:26] VITALS: BP 163/82; PULSE 108; RESP 16; O2SAT 99
--- NOTE | 2024-01-18 00:27 | ECG_ITS ---
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 Measurements Intervals [place] Rate: 110 P: 31 KS: 142 QRS: -12 QRSD: 87 T: 9 QT: 340 QTc: 460 Interpretive Statements SINUS TACHYCARDIA SEPTAL MYOCARDIAL INFARCTION , PROBABLY OLD [40+ ms Q WAVE IN V1/V2] Compared to ECG 01/17/2024 22:25:24 Left ventricular hypertrophy no longer present ST (T wave) deviation no longer present Myocardial infarct finding still present Electronically Signed On 01-18-2024 10:34:01 CDT by Matheus Bell M.D. [id number]
[2024-01-18 00:51] VITALS: RESP 18
[2024-01-18] MEDS: metoclopramide 5 mg/mL SDV 2 mL 10 MG IVP (00:51)
[2024-01-18] MEDS: morphine 4 mg/mL SDV 1 mL IVP (00:51)
[2024-01-18 01:00] LABS: Ammonia 48 umol/L (16-60)
[2024-01-18 01:15] LABS: Troponin 5 2HR 105.1 ng/L (0-15); Troponin 5 2HR Delta 11.1 ABS# (0-10)
[2024-01-18 01:27] LABS: Reflex Lactate Order REFLEX LACTIC ORDERD
[2024-01-18] MEDS: ciprofloxacin 400 MG/200 ML PREMIX 200 MG IV (01:33)
[2024-01-18 02:01] VITALS: PULSE 118; O2SAT 99
[2024-01-18] MEDS: metroNIDAZOLE IV 500 MG/100 ML PREMIX 100 MG IV (02:27)
[2024-01-18 03:53] VITALS: BP 163/82; PULSE 92; RESP 18; TEMP 36.6; O2SAT 99
== END 2024-01-18 03:40 | disposition left against medical advice (07) ==
PROVIDERS: Emergency Provider Emergency Medicine; PCP Nurse Practitioner
DX: R10.11 Right upper quadrant pain (principal); K74.60 Unspecified cirrhosis of liver; D69.6 Thrombocytopenia, unspecified; K52.9 Noninfective gastroenteritis and colitis, unspecified; Z53.29 Procedure and treatment not carried out because of patient's decision for other reasons; Z79.84 Long term (current) use of oral hypoglycemic drugs
CPT/HCPCS: 36415; 71045; 71260; 74177; 80053; 82140; 83605; 83690; 83735; 84145; 84484; 85025; 87040; 93005; 96361; 96374; 96375; 96376; 99285; J0744; J2270; J2405; J2765; J3490; J7030; Q9967

== ENCOUNTER 2025-06-15 16:00 | Inpatient (IN) | payer OTHER, MEDICARE, SELFPAY ==
[2025-06-15] VITALS (28 sets, daily range): BP systolic 96–144; BP diastolic 59–88; PULSE 76–227; RESP 10–24; TEMP 36.6; O2SAT 94–100; BMI 26.4; BMI 26.3
--- NOTE | 2025-06-15 16:06 | ECG_ITS ---
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1975 Requested By: Becky Bunch Order Number: [id number] Linda MD: KIM SARKAR Measurements Intervals [place] Rate: 174 P: 0 MN: 0 QRS: -5 QRSD: 85 T: 60 QT: 254 QTc: 433 Interpretive Statements ATRIAL FIBRILLATION WITH RAPID VENTRICULAR RESPONSE WITH ABERRANT CONDUCTION OR VENTRICULAR PREMATURE COMPLEXES MODERATE ST DEPRESSION [0.05+ mV ST DEPRESSION] CRITICAL TEST RESULT Compared to ECG 01/18/2024 00:27:37 Ventricular premature complex(es) now present Aberrant conduction of supraventricular beat(s) now present ST (T wave) deviation now present Sinus tachycardia no longer present Myocardial infarct finding no longer present Electronically Signed On 06-18-2025 12:06:22 INGREDIENT SCALER by KIM SARKAR [id number]
--- OUTSIDE RECORDS SUMMARY | 2025-06-15 16:07 | XMS_ITS | Clinical Summary ---
Author Organization [facility] Address [address] [place] [address] Care Team Providers Care Manager Support Services Name Role Phone Unavailable Primary Care Provider Unavailabl e Allergies Active Allergy Reactions Criticality Noted Date Comments Penicillins Unknown 09/19/2012 Medications Morphine 30 mg Oral Cap Take by mouth 3 times daily. Active esomeprazole Magnesium (NEXIUM PACKET) 40 mg Oral suspension delayed release Take by mouth. Mix with 15ml of water. Wait 3 min. Stir and give to patient. Active nitroglycerin (NITROSTAT) 0.[address] 0.6 mg under tongue every 5 minutes as needed. Active chlorthalidone (HYGROTON) 25 mg Oral tablet Take 25 mg by mouth daily. Active ipratropium-alb uterol (DUONEB) 0.5 mg-3 mg(2.5 mg base)/3 mL Inhalation Nebu Take 3 mL by inhalation 4 times daily. Active Fluticasone (FLOVENT DISKUS) 250 mcg/actuation Inhalation DsDv Take by inhalation 2 times daily. Active ALBUTEROL SULFATE (VENTOLIN HFA INHALATION) Take by inhalation. prn Active benazepril (LOTENSIN) 40 mg Oral tablet Take 40 mg by mouth daily. 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 Gender Identity Not on file Sexual Orientation Not on file Occupation Industry Job Start Date Job End Date Not on file Not on file Not on file Not on file Last Filed Vital Signs Vital Sign Reading Time Taken Comments Blood Pressure 166/102 09/19/2012 11:16 AM CDT Pulse 120 09/19/2012 11:16 AM CDT Temperature 36.6 C (97.9 F) 09/19/2012 11:16 AM CDT Respiratory Rate 22 09/19/2012 11:16 AM CDT Oxygen Saturation 96% 09/19/2012 11:16 AM CDT Inhaled Oxygen Concentration - - Weight 105.7 kg (233 lb) 09/19/2012 11:16 AM CDT Height 175.3 cm (5' 9 ) 09/19/2012 11:16 AM CDT Body Mass Index 34.41 09/19/2012 11:16 AM CDT Plan of Treatment Health Maintenance Due Date Last Done Comments DTAP/TDAP/TD VACCINES (1 - Tdap) 1992 HEPATITIS B VACCINES (1 of 3 - 19+ 3-dose series) 03/28 COLORECTAL SCREENING 2018 Colorectal Cancer Screening 2018 FIT-DNA Q 3 years 2018 FIT/FOBT Q 1 year 2018 Flex Sig/CT Colonography Q 5 years 2018 ZOSTER VACCINE (1 of 2) 2023 INFLUENZA VACCINE (#1) 2025 Insurance WORKERS COMP DISABILITY DETERMINATION [address] [id number] [address] [place] [address]
--- OUTSIDE RECORDS SUMMARY | 2025-06-15 16:07 | XMS_ITS | Encounter Summary ---
Author Organization [facility] Address [address] [place] [address] Care Team Providers Care Pop Singer Name Role Phone Unavailable Primary Care Provider Unavailabl e Reason for Referral * Radiology Services (Routine) - Open Specialty Diagnoses / Procedures Referred By Emelyn de leon Referred To Contact Diagnoses Alcoholic cirrhosis of liver with ascites (CMS/HCC) Procedures US ASPIRATION ABDOMEN Dilip Moctezuma MD [address] [place] [address] Phone: tel: fax: Referral ID Status Reason Start Date Expiration Date Visits Re quested Visits Authorized [id number] Open 06/11/2025 07/12/2026 1 1 PORTER Encounter Details Date Type Department Care Team (Late st Contact Info) Description 06/11/2025 Orders Only [address] [phone] Dilip Moctezuma MD [address] [place] [address] Alcoholic cirrhosis of liver with ascites (CMS/HCC) (Primary Dx) Social History Tobacco Use Types Packs/Day Years Used Date Smoking Tobacco: Every Day Alcohol Use Standard Drinks/Week Comments Yes 0.8 (1 standard drink = 0.6 oz p ure alcohol) Sex and Gender Information Value Date Recorded Sex Assigned at Not on file 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 I am the hospice outside medical sales representative and his attending physician.I will follow up on the procedure and any further care needed. Dilip Moctezuma MD PORTER documented in this encounter Plan of Treatment Scheduled Orders Name Type Priority Associated Diagnoses Orde r Schedule US ASPIRATION ABDOMEN Imaging Routine Alcoholic cirrhosis of liver with ascites (CMS/HCC) 1 Occurrences starting 06/11/2025 until 06/11/2026 documented as of this encounter Visit Diagnoses Diagnosis Alcoholic cirrhosis of liver with ascites (CMS/HCC)- Primary Alcoholic cirrhosis of liver documented in this encounter
--- OUTSIDE RECORDS SUMMARY | 2025-06-15 16:07 | XMS_ITS | Encounter Summary ---
Author Organization [facility] Address [address] [place] [address] Care Team Providers Care Real Estate Coordinator Name Role Phone Unavailable Primary Care Provider Unavailabl e Reason for Visit * Reason Onset Date Comments Erroneous encounter-disregard 06/12/2025 Encounter Details Date Type Department Care Team (Late st Contact Info) Description 06/12/2025 Telephone [facility] Medicine [place] [address] [phone] Ramon Moctezuma DO [address] [phone] Erroneous encounter-disregard Social History Tobacco Use Types Packs/Day Years Used Date Smoking Tobacco: Every Day Alcohol Use Standard Drinks/Week Comments Yes 0.8 (1 standard drink = 0.6 oz p ure alcohol) Sex and Gender Information Value Date Recorded Sex Assigned at Not on file 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
--- OUTSIDE RECORDS SUMMARY | 2025-06-15 16:07 | XMS_ITS | Encounter Summary ---
Author Organization [facility] Address [address] [place] [address] Care Team Providers Care Post Framer Name Role Phone Unavailable Primary Care Provider Unavailabl e Encounter Details Date Type Department Care Team (Late st Contact Info) Description 06/11/2025 Orders Only [facility] Medicine [place] [address] [phone] Dilip Moctezuma MD [address] [place] [phone] Alcoholic cirrhosis of liver with ascites (CMS/HCC) (Primary Dx) Social History Tobacco Use Types Packs/Day Years Used Date Smoking Tobacco: Every Day Alcohol Use Standard Drinks/Week Comments Yes 0.8 (1 standard drink = 0.6 oz p ure alcohol) Sex and Gender Information Value Date Recorded Sex Assigned at Not on file 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
--- OUTSIDE RECORDS SUMMARY | 2025-06-15 16:07 | XMS_ITS | Clinical Summary ---
Author Organization [facility] Address [address] [facility] Attn: [place] [address] Care Team Providers Care Job Foreman Name Role Phone Unavailable Primary Care Provider Unavailabl e Allergies Active Allergy Reactions Criticality Noted Date Comments Penicillins Unknown 09/19/2012 Encounters Date Type Department Care Team Description 06/12/[address] [phone] Ramon Moctezuma DO Erroneous encounter-disregard 06/11/[address] [phone] Ramon Moctezuma DO Provider Call 06/11/2025 Orders Only [address] [phone] Dilip Moctezuma MD Alcoholic cirrhosis of liver with ascites (CMS/HCC) (Primary Dx) 06/11/2025 Orders Only [address] [phone] Dilip Moctezuma MD Alcoholic cirrhosis of liver with ascites (CMS/HCC) (Primary Dx) from Last 3 Months Family History Medical History Relation Name Comments [...] on file Legal Sex Male 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
--- OUTSIDE RECORDS SUMMARY | 2025-06-15 16:07 | XMS_ITS | Encounter Summary ---
Author Organization [facility] Address [address] [place] [address] Care Team Providers Care Hinging Machine Operator Name Role Phone Unavailable Primary Care Provider Unavailabl e Reason for Visit * Reason Comments Provider Call Encounter Details Date Type Department Care Team (Late st Contact Info) Description 06/11/2025 Telephone [facility] Medicine [place] [address] [phone] Ramon Moctezuma DO [address] [phone] Provider Call Social History Tobacco Use Types Packs/Day Years Used Date Smoking Tobacco: Every Day Alcohol Use Standard Drinks/Week Comments Yes 0.8 (1 standard drink = 0.6 oz p ure alcohol) Sex and Gender Information Value Date Recorded Sex Assigned at Not on file 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 Topic: [id number] Call >> Jun 12, 2025 3:49 PM Vanessa Ma wrote: Caller is requesting to speak with Clinical Care Team. Caller Name: matthew benitez nich[facility] radiology Callback Number: [phone] Is the caller a Physician, Nurse Practitioner or Physician Patrol Agent? No Call Notes: calling because the verbige that this order was sent over as is not what they use at [facility], says please re send with updated order of US PARA SENTESIS also it has to be sent back with signature from PCP along with cover sheet says they sent one over and will send again now please call if needed Is this addressing an immediate patient care need? No RANCE ENGINEER * Telephone Encounter - Dilip Moctezuma MD - 06/12/2025 10:06 AM CST This was handled with new orders and phone discussion with [facility] radiology. Dilip Moctezuma MD RANCE ENGINEER * Telephone Encounter - Jodi Mullen LPN - 06/11/2025 4:27 PM CST Message sent to Dr. Moctezuma, as he ordered this test. RANCE ENGINEER * Telephone Encounter - Bri Padilla - 06/11/2025 3:50 PM CST Copied from [facility] #[id number]. Topic: [id number] Call >> Jun 11, 2025 3:42 PM Bri Jiménez wrote: Caller is requesting to speak with Clinical Care Team. Caller Name: [facility] Callback Number: [phone] (home) Is the caller a Physician, Nurse Practitioner or Physician Patrol Agent? No Call Notes: Received order for imaging and it is not correct. She cannot schedule pt until she has correct order. Needs new order with cover sheet. She was unsure if order was addressing anything forimmediate patient care. Transferred to EPIC CUPID ANALYST Is this addressing an immediate patient care need? Yes Advised by PCN to call EPIC CUPID ANALYST. RANCE ENGINEER documented in this encounter Plan of Treatment Not on file documented as of this encounter Visit Diagnoses Not on filedocumented in this encounter
--- NOTE | 2025-06-15 16:11 | XRR_ITS ---
PROCEDURE INFORMATION: Exam: XR Chest Exam date and time: 06/15/2025 4:31 PM Age: 50 years old Clinical indication: Chest pressure; C/O chest pain and SOB. PT stated he has end stage liver cancer and is on hospice. PT stated he does have a cardiac HX. PT stated he feels like something is setting on his chest. TECHNIQUE: Imaging protocol: Radiologic exam of the chest. Views: 1 view. COMPARISON: CT chest abdpel [id number] 01/17/2024 11:13 PM FINDINGS: Lungs: Unremarkable. No consolidation. Pleural spaces: Unremarkable. No pleural effusion. No pneumothorax. Heart/Mediastinum: Unremarkable. No cardiomegaly. Bones/joints: Unremarkable. XR/XR chest 1V portable [id number] IMPRESSION: No acute findings.
--- NOTE | 2025-06-15 16:19 | W.ED.CHESTPA ---
HPI - Chest Pain General: Chief Complaint: Chest Pain Stated Complaint: CP SOB Pain down L Arm Time Seen by Provider: 06/15/25 16:15 History of Present Illness: 50-year-old man with a history of liver cancer. He decided he did not want to have treatment and so he went on hospice. He did not want to do any kind of chemotherapy. Today he developed some chest pain and that his heart was going fast so he called an ambulance and came to the emergency room. He says he does not want to be on hospice right now and he wants to be a full code. He does not have any history of A-fib with RVR but is in A-fib with RVR on presentation. Not on any blood thinners. He has had some chest pressure. No cough. No fever. No altered mental status. No vomiting Related Data Home Medications ?Medication ?Instructions ?Recorded ?Confirmed hydrocodone 7.5 mg-ibuprofen 200 1 - 2 tab PO Q4H PRN Pain 11/13/20 10/27/22 mg tablet albuterol sulfate 90 mcg/actuation 2 puff inhalation QID PRN 10/27/22 10/27/22 aerosol inhaler Shortness Of Breath atenolol 50 mg tablet 50 mg PO DAILY 10/27/22 10/27/22 cyclobenzaprine 10 mg tablet 10 mg PO Q8H PRN Muscle Spasm 10/27/22 10/27/22 fluticasone fur. 200 mcg-umeclid 1 inh inhalation DAILY 10/27/22 10/27/22 62.5 mcg-vilant 25 mcg inhalat.powder (Trelegy Ellipta) fluticasone furoate 200 1 inh inhalation DAILY 10/27/22 10/27/22 mcg-vilanterol 25 mcg/dose inhalation powder (Breo Ellipta) fluticasone propionate 50 2 spray intranasal DAILY 10/27/22 10/27/22 mcg/actuation nasal spray,suspension folic acid 1 mg tablet 1 mg PO DAILY 10/27/22 10/27/22 furosemide 40 mg tablet 40 mg PO BID 10/27/22 10/27/22 gabapentin 400 mg capsule 400 mg PO Q6H 10/27/22 10/27/22 lactulose 10 gram/15 mL oral 15 ml PO TID 10/27/22 10/27/22 solution (Constulose) loratadine 10 mg tablet 10 mg PO QAM 10/27/22 10/27/22 metformin 500 mg tablet,extended 500 mg PO BID 10/27/22 10/27/22 release 24 hr multivitamin 1 tab PO DAILY 10/27/22 10/27/22 pantoprazole 40 mg tablet,delayed 40 mg PO DAILY 10/27/22 10/27/22 release awhxhavjolebf-FQ-uolicudfksqjw-guaif 20 ml PO BEDTIME 10/27/22 10/27/22 10 mg-20 mg-650 mg/20 mL oral liq (Ivyj-Yuu-Zrnh Throat) potassium chloride 10 mEq 10 meq PO BID 10/27/22 10/27/22 tablet,extended release ropinirole 2 mg tablet 2 mg PO TID 10/27/22 10/27/22 spironolactone 50 mg tablet 50 mg PO DAILY 10/27/22 10/27/22 tamsulosin 0.4 mg capsule 0.4 mg PO BID 10/27/22 10/27/22 testosterone cypionate 200 mg/mL 200 mg IM .EVERY 3 WEEKS 10/27/22 10/27/22 intramuscular oil umeclidinium 62.5 mcg/actuation 1 inh inhalation DAILY 10/27/22 10/27/22 blister powder for inhalation (Incruse Ellipta) Previous Rx's ?Medication ?Instructions ?Recorded ciprofloxacin HCl 500 mg tablet 500 mg PO Q12H #20 tabs 01/18/24 metronidazole 500 mg tablet 500 mg PO Q8H #30 tabs 01/18/24 Allergies Allergy/AdvReac Type Severity Reaction Status Date / Time lisinopril Allergy unk Verified 01/17/24 22:28 Penicillins Allergy unk Verified 01/17/24 22:28 Sulfa (Sulfonamide Allergy ALGY-Hives Verified 06/15/25 16:11 Antibiotics) sulfamethoxazole (From Allergy unk Verified 01/17/24 22:28 Bactrim) trimethoprim (From Bactrim) Allergy unk Verified 01/17/24 22:28 Review of Systems Narrative: Constitutional symptoms: Negative except as documented in HPI. Skin symptoms: Negative except as documented in HPI. Eye symptoms: Negative except as documented in HPI. ENMT symptoms: Negative except as documented in HPI. Respiratory symptoms: Negative except as documented in HPI. Cardiovascular symptoms: Negative except as documented in HPI. Gastrointestinal symptoms: Negative except as documented in HPI. Genitourinary symptoms: Negative except as documented in HPI. Musculoskeletal symptoms: Negative except as documented in HPI. Neurologic symptoms: Negative except as documented in HPI. Psychiatric symptoms: Negative except as documented in HPI. Endocrine symptoms: Negative except as documented in HPI. [facility] ED PFSH: Medical History (Updated 06/15/25 @ 17:43 by Lisa Ambrosio MD) Thrombocytopenia Liver cirrhosis Abnormal laboratory test Physical Exam Narrative: EXAM NARRATIVE: General: Alert, no acute distress. Skin: Warm, dry. Head: Normocephalic, atraumatic. Neck: Supple, trachea midline. Eye: Extraocular movements are intact. Ears, nose, mouth and throat: Dry oral mucosa Cardiovascular: Irregular, tachycardic, normal peripheral perfusion. Respiratory: Lungs are clear to auscultation, respirations are non-labored, breath sounds are equal, Symmetrical chest wall expansion. Gastrointestinal: Soft, Nontender, Non distended Musculoskeletal: Normal ROM, no deformity. Neurological: Alert and oriented, No focal neurological deficit observed. Psychiatric: Cooperative, appropriate mood & affect. Course Vital Signs: Vital signs: Vital Signs Temperature 97.8 F 06/15/25 16:02 Pulse Rate 145 H 06/15/25 17:15 Respiratory Rate 22 H 06/15/25 16:43 Blood Pressure 107/78 06/15/25 17:00 Pulse Oximetry 100 06/15/25 17:15 Oxygen Delivery Me thod Nasal Cannula 06/15/25 17:15 Oxygen Flow Rate 3 06/15/25 17:15 MDM - Chest Pain Medical Decision Making Medical decision making Patient's reason for coming to the emergency room: Chest pain Social determinants: Patient has been on hospice I reviewed the patient's medical record. Minimal visits to this facility. Lists that he does have splenomegaly, superior mesenteric vein thrombosis, portal vein thrombosis, hepatocellular carcinoma, and cirrhosis. I reviewed the patient's current home meds CARGO SUPERVISOR: Patient has been's prescribed morphine and lorazepam. Alternate historians: None Differential diagnosis for patient with chest pain includes but is not limited to and based on the above HPI, review of systems and physical exam: Pneumonia. unstable angina. angina. Acute coronary syndrome / [place]. Pulmonary embolism. Costochondritis / musculoskeletal. Pleurisy. Pericarditis. Esophageal spasm. Pancreatitis. Cholecystitis. Orders placed to evaluate differential diagnosis based on the above differential, HPI and physical exam EKG: Time 1606. Rate 174. Atrial fibrillation with rapid ventricular response, nonspecific ST changes, no ectopy, This was reviewed and interpreted by myself the ER physician at 1610 Repeat EKG: Time 1724. Rate 137. Atrial fibrillation with rapid ventricular response, No ST-T changes, no ectopy, This was reviewed and interpreted by myself the ER physician at 1730. Rate has come down from 174-137 Chest x-ray: No acute process. No infiltrate. No pneumothorax. Films were interpreted by myself the emergency room provider and pending final radiology review. Lab Review: Laboratory results were reviewed and interpreted by myself the emergency room physician. No leukocytosis. No anemia. Mild renal failure. Initial troponin is mildly elevated at 73. Assessment of risk: Level of risk: Moderate risk patient Hospitalization considerations: Patient is being admitted. Reexamination: Patient remains tachycardic. No altered mental status. No focal motor deficits. He has chronic hypoxemic respiratory failure and is on 3 L nasal cannula at his baseline. consultation: I spoke Dr. Odonnell who is on-call for the hospital service who agrees to admission Assessment and plan: A-fib with RVR Dehydration Acute renal insufficiency Hepatocellular carcinoma Cirrhosis ?2 L normal saline bolus ?Amiodarone bolus and amiodarone drip. Have also given a small dose of diltiazem. -I discussed the patient with the hospitalist on-call who is admitting the patient. - Discussed findings and plan with patient. Answered any questions. - All laboratory values were reviewed and interpreted personally by myself, the ER physician - All imaging was reviewed and interpreted personally by myself, the ER physician. - Evaluation and treatment of this problem were appropriate in the emergency setting Critical Care: -I spent a total of 45 minutes of critical care time managing the patient, independent of any other practitioner. -The time involved in the performance of separately reportable procedures was not counted towards critical care time. Lab Data 06/15/25 16:18 06/15/25 16:18 Laboratory Results WBC 7.70 10^3/uL (3.29-11.43) 06/15/25 16:18 RBC 5.65 10^6/uL (3.85-5.65) 06/15/25 16:18 Hgb 16.60 g/dL (11.27-16.99) 06/15/25 16:18 Hct 49.3 % (37-53) 06/15/25 16:18 MCV 87.3 fl (82-101) 06/15/25 16:18 MCH 29.4 pg (27-33) 06/15/25 16:18 MCHC 33.7 g/dL (30-55) 06/15/25 16:18 RDW 17.3 % (12.1-15.1) H 06/15/25 16:18 Plt Count 56 10^3/cmm (157-399) L 06/15/25 16:18 MPV 9.6 fL (7.4-10.4) 06/15/25 16:18 Neut % (Auto) 77.0 % 06/15/25 16:18 Lymph % (Auto) 9.4 % 06/15/25 16:18 Crosby % (Auto) 9.1 % 06/15/25 16:18 Eos % (Auto) 3.6 % 06/15/25 16:18 Baso % (Auto) 0.5 % 06/15/25 16:18 Neut # (Auto) 5.93 10^3/uL (1.8-7.7) 06/15/25 16:18 Lymph # (Auto) 0.7 10^3/uL (0.8-4.8) L 06/15/25 16:18 Crosby # (Auto) 0.7 10^3/uL (0.2-0.9) 06/15/25 16:18 Eos # (Auto) 0.3 10^3/uL (0.0-0.8) 06/15/25 16:18 Baso # (Auto) 0.0 10^3/uL (0.0-0.1) 06/15/25 16:18 Nucleated RBC % (auto) 0 % 06/15/25 16:18 Nucleated RBCs # 0.0 /100WBC 06/15/25 16:18 PT 16.90 SECONDS (12.1-14.9) H 06/15/25 16:18 INR 1.29 (0.8-1.2) H 06/15/25 16:18 APTT 32.0 SECONDS (23.9-36.7) 06/15/25 16:18 Sodium 133 mmol/L (136-145) L 06/15/25 16:18 Potassium 4.0 mmol/L (3.5-5.1) 06/15/25 16:18 Chloride 93 mmol/L (98-107) L 06/15/25 16:18 Carbon Dioxide 26 mmol/L (22-29) 06/15/25 16:18 Anion Gap 18.0 (5-19) 06/15/25 16:18 BUN 20 mg/dL (6-20) 06/15/25 16:18 Creatinine 1.3 mg/dL (0.7-1.2) H 06/15/25 16:18 GFR Calculation 58.0 mL/min (90-130) L 06/15/25 16:18 Glucose 169 mg/dL (65-115) H 06/15/25 16:18 Calculated Osmolality 283 mOsm/kg (285-295) L 06/15/25 16:18 Calcium 10.0 mg/dL (8.5-10.5) 06/15/25 16:18 Total Bilirubin 3.0 mg/dL (0.15-1.2) H 06/15/25 16:18 AST 62 U/L (0-40) H 06/15/25 16:18 ALT 43 U/L (0-41) H 06/15/25 16:18 Alkaline Phosphatase 129 U/L (40-130) 06/15/25 16:18 Troponin T Baseline 73 ng/L (0-15) H 06/15/25 16:18 Troponin T 60 Minute 64.72 ng/L (0-15) H 06/15/25 17:08 Delta Troponin T -8.28 ABS# (0-10) L 06/15/25 17:08 NT-Pro-B Natriuret Pep 61 pg/mL (0-125) 06/15/25 16:18 Total Protein 7.8 g/dL (6.6-8.7) 06/15/25 16:18 Albumin 4.7 g/dL (3.5-5.2) 06/15/25 16:18 Globulin 3.1 g/dL (1.3-4.6) 06/15/25 16:18 Lipase 14 U/L (13-60) 06/15/25 16:18 XR interpretation done by ED provider, pending radiology final review Clincial Decision Support The following clinical decision support tools were used to aid in care of the patient HEART Score -> History: Slightly Suspicous, EKG: Non-specific Changes, Age: 45-64 yrs, Risk Factors: 1 or 2 Risk Factors, Troponin: Baseline Trop >45 ng/L. Resulting HEART Score: 5. Discharge Plan Discharge Patient Disposition: Admitted As Inpatient Clinical Impression: Atrial fibrillation with rapid ventricular response, Hepatocellular carcinoma, Dehydration, Acute renal insufficiency Liver cirrhosis Qualifiers: Hepatic cirrhosis type: unspecified hepatic cirrhosis Ascites presence: with ascites Qualified Code(s): K74.60 - Unspecified cirrhosis of liver Condition: Stable Coding Level of Care Code ED Customer Services Coordinator for [facility] Heart Score HEART Score Components History: Slightly Suspicous EKG: Non-specific Changes Age: 45-64 yrs Risk Factors: 1 or 2 Risk Factors Troponin: Baseline Trop >45 ng/L HEART Score RESULT HEART Score: 5
[2025-06-15 16:26] LABS: Hematocrit 49.3 % (37-53); Hemoglobin 16.60 g/dL (11.27-16.99); Mean Corpuscular HGB Conc 33.7 g/dL (30-55); Mean Corpuscular Hemoglobin 29.4 pg (27-33); Mean Corpuscular Volume 87.3 fl (82-101); Nucleated Red Blood Cells % 0 %; Platelet Count 56 10^3/cmm (157-399); Red Blood Count 5.65 10^6/uL (3.85-5.65); White Blood Count 7.70 10^3/uL (3.29-11.43)
[2025-06-15] MEDS: amiodarone 150 MG/100 ML PREMIX 400 MG IV (16:32)
--- NOTE | 2025-06-15 16:34 | PC.NURSE ---
Amiodarone bolus and drip started by Adela Estrella RN.
[2025-06-15 16:41] LABS: INR 1.29 (0.8-1.2); Prothrombin Time 16.90 SECONDS (12.1-14.9)
[2025-06-15 16:42] LABS: Partial Thromboplastin Time 32.0 SECONDS (23.9-36.7)
[2025-06-15 16:45] LABS: Troponin(5th) Baseline 73 ng/L (0-15)
[2025-06-15] MEDS: AMIODARONE HCL/D5W 900 MG/500 ML BAG 33.33 MG IV (16:51)
--- NOTE | 2025-06-15 16:52 | PC.NURSE ---
Pt Amiodarone drip started by Prudence FLETCHER.
[2025-06-15 16:54] LABS: Alanine Aminotransferase 43 U/L (0-41); Albumin Level 4.7 g/dL (3.5-5.2); Alkaline Phosphatase 129 U/L (40-130); Aspartate Amino Transferase 62 U/L (0-40); Blood Urea Nitrogen 20 mg/dL (6-20); Calcium 10.0 mg/dL (8.5-10.5); Carbon Dioxide 26 mmol/L (22-29); Chloride 93 mmol/L (98-107); Globulin 3.1 g/dL (1.3-4.6); Glucose 169 mg/dL (65-115); Lipase 14 U/L (13-60); NT Pro B Type Natriuretic Pept 61 pg/mL (0-125); Osmolality Calculated 283 mOsm/kg (285-295); Sodium 133 mmol/L (136-145); Total Protein 7.8 g/dL (6.6-8.7)
[2025-06-15 16:55] LABS: Anion Gap 18.0 (5-19); Potassium 4.0 mmol/L (3.5-5.1)
--- NOTE | 2025-06-15 17:11 | ECG_ITS ---
[employer] Test Date: 2025-06-15 Pat Name: Jigar Connell Department: Room: Gender: Male Chief Operator Synthesis: : 1975 Requested By: Lisa Toledo Order Number: [id number] Linda MD: KIM SARKAR Measurements Intervals [place] Rate: 137 P: 0 LA: 0 QRS: -24 QRSD: 89 T: 48 QT: 306 QTc: 463 Interpretive Statements ATRIAL FIBRILLATION WITH RAPID VENTRICULAR RESPONSE BORDERLINE LEFT AXIS DEVIATION [QRS AXIS < -20] MINIMAL VOLTAGE CRITERIA FOR LVH, CONSIDER NORMAL VARIANT [MEETS CRITERIA IN ONE OF: R(aVL), S(V1), R(V5), R(V5/V6)+S(V1)] ABNORMAL RHYTHM ECG Compared to ECG 06/15/2025 16:06:12 Ventricular premature complex(es) no longer present Aberrant conduction of supraventricular beat(s) no longer present ST (T wave) deviation no longer present Electronically Signed On 06-19-2025 20:49:44 FUR TAILOR by KIM SARKAR [id number]
[2025-06-15] MEDS: dilTIAZem 5 mg/mL SDV 5 mL 10 MG IVP (17:14)
--- NOTE | 2025-06-15 17:55 | P.HP_ITS ---
<Statement entered by Vadim Odonnell MD - 06/16/25 10:54> Patient case discussed with ED provider and reviewed and discussed with HERMINIO including E&M. Providers/Chief Complaint 2 Admitting Physician: Dr. Odonnell Primary Care Provider: OLEG Edwards Chief Complaint: CP SOB Pain down L Arm History of Present Illness Jigar Connell is a 50 year old male w/ pmhx COPD, GERD, HTN, SMV thrombosis, multiple varices, alcoholic liver cirrhosis with thrombocytopenia, and was dx with hepatocellular carcinoma presents to ED today via POV with c/o chest pain. Patient reports shortness of breath x 2 days and chest pain that began this morning. He describes it as pressure radiating to his left arm and down his back. He reports associated signs and symptoms of nausea, dry cough, headache. Patient sitting up on side of the bed on 3 L nasal cannula (baseline) during my evaluation, family noted to be at bedside. Patient states he wants to be a full code during hospitalization- I want to go home to my family and my dog but would like to discharge back home with hospice. Patient to be admitted to hospitalist services for further medical management care. While in ED a CBC, CMP, troponin series,BNP, PT/INR/APTT was obtained, reviewed and results as follows: RDW 17.3, Plt 56. Na 133, K 4, mag 1.4, Osmo 283, glucose 169. Life Skills Specialist 1.3 BUN 20, GFR 58, alk phos 129. AST 62, ALT 43, bilirubin 3.0. Baseline troponin 73, 2-hour troponin 64.72, delta troponin T -8.28, BNP 61. PT 16.9, INR 1.29, APTT 32. While patient was in ED the following medications were administered: 2L NS bolus, aspirin 324 mg p.o., Cardizem 10 mg IVP x 1, amiodarone 150 mg bolus then subsequently started on amiodarone drip. Review of Systems 2 General: Reports: 10 or more systems reviewed and unremarkable except in HPI and below Medications/Allergies Home Medications ?Medication ?Instructions ?Recorded ?Confirmed ?Last Taken ?Type hydrocodone 7.5 mg-ibuprofen 200 1 - 2 tab PO Q4H PRN Pain 11/13/20 10/27/22 Unknown History mg tablet albuterol sulfate 90 mcg/actuation 2 puff inhalation Q ID PRN 10/27/22 10/27/22 Unknown History aerosol inhaler Shortness Of Breath atenolol 50 mg tablet 50 mg PO DAILY 10/27/22 05/09/16 Unknown History cyclobenzaprine 10 mg tablet 10 mg PO Q8H PRN Muscle S pasm 10/27/22 10/27/22 Unknown History fluticasone fur. 200 mcg-umeclid 1 inh inhalation JOVANNY Y 10/27/22 10/27/22 Unknown History 62.5 mcg-vilant 25 mcg inhalat.powder (Trelegy Ellipta) fluticasone furoate 200 1 inh inhalation DAILY 10/2710/27/22 Unknown History mcg-vilanterol 25 mcg/dose inhalation powder (Breo Ellipta) fluticasone propionate 50 2 spray intranasal DAILY 09/1610/27/22 Unknown History mcg/actuation nasal spray,suspension folic acid 1 mg tablet 1 mg PO DAILY 10/27/2210/27 Unknown History furosemide 40 mg tablet 40 mg PO BID 10/27/22 Unknown History gabapentin 400 mg capsule 400 mg PO Q6H 10/27/2210/27 Unknown History lactulose 10 gram/15 mL oral 15 ml PO TID 10/27/2209/16 Unknown History solution (Constulose) loratadine 10 mg tablet 10 mg PO QAM 10/27/22 Unknown History metformin 500 mg tablet,extended 500 mg PO BID 3 10/27/22 Unknown History release 24 hr multivitamin 1 tab PO DAILY 10/27/22 05/09/16 Unknown History pantoprazole 40 mg tablet,delayed 40 mg PO DAILY 10/2710/27/22 Unknown History release fmnnsuzlzxhbe-LP-xeecceoryuxpm-guaif 20 ml PO BEDTIME 10/27/22 10/27/22 Unknown History 10 mg-20 mg-650 mg/20 mL oral liq (Gata-Ori-Vteq Throat) potassium chloride 10 mEq 10 meq PO BID 10/27/2210/27 Unknown History tablet,extended release ropinirole 2 mg tablet 2 mg PO TID 10/27/22 3 Unknown History spironolactone 50 mg tablet 50 mg PO DAILY 10/27/22 Unknown History tamsulosin 0.4 mg capsule 0.4 mg PO BID 10/27/2210/27 Unknown History testosterone cypionate 200 mg/mL 200 mg IM .EVERY 3 WE EKS 10/27/22 10/27/22 Unknown History intramuscular oil umeclidinium 62.5 mcg/actuation 1 inh inhalation DAILY 10/27/22 10/27/22 Unknown History blister powder for inhalation (Incruse Ellipta) ciprofloxacin HCl 500 mg tablet 500 mg PO Q12H #20 tab s 01/18/24 Unknown Rx metronidazole 500 mg tablet 500 mg PO Q8H #30 tabs Unknown Rx Allergies Allergy/AdvReac Type Severity Reaction Status Date / Time lisinopril Allergy unk Verified 01/17/24 22:28 Penicillins Allergy unk Verified 01/17/24 22:28 Sulfa (Sulfonamide Allergy ALGY-Hives Verified 06/15/25 16:11 Antibiotics) sulfamethoxazole (From Allergy unk Verified 01/17/24 22:28 Bactrim) trimethoprim (From Bactrim) Allergy unk Verified 01/17/24 22:28 PFSH Acute 2 PFSH: Medical History (Updated 06/15/25 @ 21:08 by Ana Yepez NP) Chronic pain Thrombocytopenia Liver cirrhosis Abnormal laboratory test Vitals/I&O/Wt Last Vital Signs Temp 97.8 F 06/15/25 16:02 Pulse 145 H 06/15/25 17:15 Resp 22 H 06/15/25 16:43 BP 107/78 06/15/25 17:00 Pulse Ox 100 06/15/25 17:15 O2 Del Method Nasal Cannula 06/15/25 17:15 O2 Flow Rate 3 06/15/25 17:15 06/15/25 06/15/25 06/15/25 06:59 14:59 22:59 Intake Total 100 / 100 Balance 100 / 100 Weight last 48 hrs Weight 78.925 kg Physical Exam 2 Narrative: General: A&Ox4, appears sleepy during evaluation. HEENT: Normo-cephalic, atraumatic, grossly unremarkable exam Cardio: Afib RVR, normal S1-S2 without any murmurs, rubs, or gallops and JVD normal Respiratory: Clear breathing on auscultation w/o any wheezes, stridor, rhonchi GI: Abd soft, non-tender, non-distended, normo-active bowel sounds present Neuro: Moves all extremities, no sensory deficits, Normal speech Behavior: Appropriate and cooperative Extremities: Adequate palpable pulses. No clubbing, cyanosis or edema, Full ROM Data 06/15/25 16:18 06/15/25 16:18 Other Labs: 06/15: EKG 1711: A-fib with RVR, no ST changes, negative QRS 89, QTc 463, HR 137 06/15: EKG 1606: A-fib with RVR, no ST changes, QRS 85, QTc 433, HR 174 06/15: CXR: Reviewed and results as follows: No acute findings. A&P Assessment and plan 1. Hepatocellular carcinoma: - Patient on home hospice. Presents to ED with A-fib RVR continues with inpatient management. Patient states he wants Full Code status during hospitalization but would like to discharge back on home hospice. 2. Atrial fibrillation with rapid ventricular response: - Baseline troponin 73, 2-hour troponin 64.72, delta troponin T -8.28, BNP 61. - 06/15: EKG 1711: A-fib with RVR, no ST changes, negative QRS 89, QTc 463, HR 137 - 06/15: EKG 1606: A-fib with RVR, no ST changes, QRS 85, QTc 433, HR 174 - 06/15: CXR: No acute findings. - Keep electrolytes replaced: K, Mag. Mag replaced with 4gm IV - CHADS VASc score: 3 points-4.6% risk of stroke. Unable to administer anticoagulation due to high risk of bleed. Plt 59. - Continue IV amiodarone drip - Echo ordered, pending. - ICU as overflow, Patient is a CSU patient 3. Hypomagnesemia: - Mag 1.4 - Replaced with magnesium 4 mg IV - Mag ordered daily - Supplement as indicated 4. Thrombocytopenia: - Plt 56 - CHADS VASc 3 points-4.6% increased risk of stroke. Unable to administer anticoagulation due to high risk of bleed. Patient educated on following up with PCP on increased risk. - Hold inpatient VTE prophylaxis due to increased risk of bleeding. 5. Transaminitis: - AST 62, ALT 43, bilirubin 3.0 - 6. FLORECITA (acute kidney injury): - Life Skills Specialist 1.3 BUN 20, GFR 58, alk phos 129 - Keep MAP >65 - Monitor K and Phos closely. - Strict I&O's - Avoid nephrotoxins 7. BPH (benign prostatic hyperplasia): - Continue home medication tamsulosin 0.4 mg po BID PDMP PDMP Reviewed: Not Reviewed Attestations 2 Medical Necessity Statement*: Admitted under inpatient status. Given complexity of patient's presentation, A- fib with RVR, co-morbid conditions, and required intensity of treatment, a hospitalization exceeding two midnights is anticipated. and High Time for a total of 79 minutes, includes reviewing past or interval history, examining/interviewing patient, placing orders, counseling patient/family/other support, updating patient/family/other support, discussing plan of care with staff, communicating with other healthcare providers, documenting encounter and coordinating care Diagnoses Hepatocellular carcinoma C22.0 Atrial fibrillation with rapid ventricular response I48.91 Hypomagnesemia E83.42 Thrombocytopenia D69.6 Transaminitis R74.01 FLORECITA (acute kidney injury) N17.9 BPH (benign prostatic hyperplasia) N40.0
[2025-06-15 17:59] LABS: Magnesium 1.4 mg/dL (1.7-2.3)
[2025-06-15 18:48] LABS: Estmated Average Glucose 105; Hemoglobin A1C 5.3 % (4.0-6.0)
[2025-06-15 18:49] LABS: Cholesterol 172 mg/dL (0-200); HDL Cholesterol 101 mg/dL (60-100); Triglycerides 75 mg/dL (0-150)
--- NOTE | 2025-06-15 19:13 | PC.NURSE ---
attempted pt report to ICU at 1905, nurse to callback.
[2025-06-15] MEDS: magnesium sulfate premix 4 GM/100 ML PREMIX IV (20:12)
--- NOTE | 2025-06-15 22:11 | ECG_ITS ---
[facility] Test Date: 2025-06-15 Pat Name: Jigar Connell Department: Room: ICU01 Gender: Male Wharf Tally Clerk: : 1975 Requested By: Lisa Toledo Order Number: [id number] Linda MD: KIM SARKAR Measurements Intervals [place] Rate: 81 P: 43 GA: 171 QRS: -17 QRSD: 93 T: 43 QT: 388 QTc: 451 Interpretive Statements SINUS RHYTHM Compared to ECG 06/15/2025 17:24:28 Atrial fibrillation no longer present Electronically Signed On 06-19-2025 20:48:41 CUSTOM GARMENT DESIGNER by KIM SARKAR [id number]
[2025-06-15 22:21] LABS: Troponin 5 6HR 70.60 ng/L (0-15); Troponin 5 6HR Delta -2.40 ng/L (0-12)
[2025-06-16] VITALS (34 sets, daily range): BP systolic 94–161; BP diastolic 55–81; PULSE 68–108; RESP 8–20; TEMP 36.8–37.2; O2SAT 90–100
[2025-06-16 04:23] LABS: Hematocrit 40.4 % (37-53); Hemoglobin 13.50 g/dL (11.27-16.99); Mean Corpuscular HGB Conc 33.4 g/dL (30-55); Mean Corpuscular Hemoglobin 29.5 pg (27-33); Mean Corpuscular Volume 88.2 fl (82-101); Nucleated Red Blood Cells % 0 %; Platelet Count 44 10^3/cmm (157-399); Red Blood Count 4.58 10^6/uL (3.85-5.65); White Blood Count 4.13 10^3/uL (3.29-11.43)
[2025-06-16 05:01] LABS: Alanine Aminotransferase 33 U/L (0-41); Albumin Level 3.9 g/dL (3.5-5.2); Alkaline Phosphatase 98 U/L (40-130); Aspartate Amino Transferase 46 U/L (0-40); Blood Urea Nitrogen 18 mg/dL (6-20); Calcium 8.8 mg/dL (8.5-10.5); Carbon Dioxide 28 mmol/L (22-29); Chloride 95 mmol/L (98-107); Globulin 2.6 g/dL (1.3-4.6); Glucose 110 mg/dL (65-115); Osmolality Calculated 279 mOsm/kg (285-295); Sodium 133 mmol/L (136-145); Total Protein 6.5 g/dL (6.6-8.7)
[2025-06-16] MEDS: lactulose oral liq 20 gm/30 mL UDC 10 GM PO ×2 (05:04→13:06)
[2025-06-16] MEDS: fluticasone nasal spray 16gm Btl 2 SPRAY INTRANASAL (05:05)
[2025-06-16 05:11] LABS: Anion Gap 13.9 (5-19); Potassium 3.9 mmol/L (3.5-5.1)
[2025-06-16] MEDS: ondansetron 2 mg/ML SDV 2 mL 4 MG IVP (08:43)
--- NOTE | 2025-06-16 09:00 | PC.NURSE ---
Pt and his niece agitated and anxious. Pt is wanting to go home. Discussed with pt waiting for the Physician so he can get the medications he needs. Pt still has Amio gtt infusing at this time. Both continue to be very anxious Also discussed AMA vs. waiting on physician. Will continue to monitor.
--- NOTE | 2025-06-16 14:22 | P.DS_ITS ---
Discharge Providers Date of Admission: 06/15/25 17:41 Date of Discharge: June 16, 2025 Attending Provider at Admission: Vadim Odonnell Attending Provider at Discharge: Sonny Tripp MD Primary Care Provider: OLEG Edwards Diagnoses at Discharge Discharge Diagnosis 1. Hepatocellular carcinoma: 2. Atrial fibrillation with rapid ventricular response: 3. Hypomagnesemia: 4. Thrombocytopenia: 5. Transaminitis: 6. FLORECITA (acute kidney injury): 7. BPH (benign prostatic hyperplasia): Reason for Visit Reason for Visit: CP SOB Pain down L Arm Brief History: Jigar Connell is a 50 year old male w/ pmhx COPD, GERD, HTN, SMV thrombosis, multiple varices, alcoholic liver cirrhosis with thrombocytopenia, and was dx with hepatocellular carcinoma presents to ED today via POV with c/o chest pain. Patient reports shortness of breath x 2 days and chest pain that began this morning. He describes it as pressure radiating to his left arm and down his back. He reports associated signs and symptoms of nausea, dry cough, headache. Patient sitting up on side of the bed on 3 L nasal cannula (baseline) during my evaluation, family noted to be at bedside. Patient states he wants to be a full code during hospitalization- I want to go home to my family and my dog but would like to discharge back home with hospice. Patient to be admitted to hospitalist services for further medical management care. While in ED a CBC, CMP, troponin series,BNP, PT/INR/APTT was obtained, reviewed and results as follows: RDW 17.3, Plt 56. Na 133, K 4, mag 1.4, Osmo 283, glucose 169. Snow Blower 1.3 BUN 20, GFR 58, alk phos 129. AST 62, ALT 43, bilirubin 3.0. Baseline troponin 73, 2-hour troponin 64.72, delta troponin T -8.28, BNP 61. PT 16.9, INR 1.29, APTT 32. While patient was in ED the following medications were administered: 2L NS bolus, aspirin 324 mg p.o., Cardizem 10 mg IVP x 1, amiodarone 150 mg bolus then subsequently started on amiodarone drip. Hospital Course Hospital Course Patient stabilized on IV amiodarone gtt., transition to p.o. amiodarone 400 mg daily. Patient has advanced liver cirrhosis, with hepatocellular carcinoma. Patient already takes nadolol 80 mg daily for esophageal varices. For rate control, and to substitute amiodarone due to potential for long-term liver injury, increased nadolol from 80 mg to 120 mg daily. Patient was admitted to hospice care prior to admission this hospitalization. Patient did appear with chest pain, which had resolved with mild elevated troponin. Can be attributed to the acute tachycardia and FLORECITA. FLORECITA resolved with IV fluids, patient discharged back to hospice in stable condition with only medication change to increase his nadolol. Follow-up with primary care doctor. Patient has a [id number] score of 3 with 4.7% risk of stroke, but with high risk of bleed with history of esophageal varices, any anticoagulation was withheld. Patient discharged in stable condition. By the time of discharge, patient's atrial fibrillation resolved. He follows up with Dr. Khalil's his primary care doctor, last saw him 6 to 7 months ago. I advised the patient to follow-up with a check of his vitals, heart rate, how he tolerates the increased dose of the nadolol, and EKG. Physical Exam Const: COMMON NORMALS: patient oriented x3 and alert GENERAL APPEARANCE: cooperative ORIENTATION/CONSCIOUSNESS: Yes awake HENMT: COMMON NORMALS: oropharynx normal Neck/C-Spine: COMMON NORMALS: no JVD Resp: COMMON NORMALS: normal respiratory effort and clear to auscultation bilaterally AUSCULTATION: clear to auscultation bilaterally Cardio: COMMON NORMALS: no JVD, regular rhythm, S1 normal heart sound present, S2 normal heart sound present and No murmurs present (Cardio) RHYTHM: regular rhythm HEART SOUNDS: S1 normal heart sound present and S2 normal heart sound present GI: COMMON NORMALS: Normal to inspection, nondistended, normoactive bowel sangeeta nds present, Soft to palpation and non-tender PALPATION: Yes Soft to palpation Extremity: COMMON NORMALS: no joint enlargement and no pedal edema Neuro: COMMON NORMALS: patient oriented x3 and moves all extremities SENSORIUM/ORIENTATION: Yes alert Skin: COMMON NORMALS: no rashes or lesions noted GENERAL SKIN EXAM: no rashes or lesions noted Discharge Data Studies Completed and Pending Completed Studies During Hospitalization Category Date Time Status XR chest 1V portable [id number] Stat Exams 06/15/25 16:11 Completed Pending at discharge Category Date Time Status Complete Blood Count w/Auto AM LABS Lab 06/17/25 04:00 Ordered Complete Blood Count w/Auto AM LABS Lab 06/18/25 04:00 Ordered Comprehensive Metabolic Panel AM LABS Lab 06/17/25 04:00 Ordered Comprehensive Metabolic Panel AM LABS Lab 06/18/25 04:00 Ordered CV. echo complete* [id number] Routine Ultrasound 06/16/25 18:29 Taken Radiology Impressions Chest X-Ray 06/15/25 16:11 IMPRESSION: No acute findings. Laboratory Results WBC 4.13 10^3/uL (3.29-11.43) 06/16/25 03:12 RBC 4.58 10^6/uL (3.85-5.65) 06/16/25 03:12 Hgb 13.50 g/dL (11.27-16.99) 06/16/25 03:12 Hct 40.4 % (37-53) 06/16/25 03:12 MCV 88.2 fl (82-101) 06/16/25 03:12 MCH 29.5 pg (27-33) 06/16/25 03:12 MCHC 33.4 g/dL (30-55) 06/16/25 03:12 RDW 17.2 % (12.1-15.1) H 06/16/25 03:12 Plt Count 44 10^3/cmm (157-399) L 06/16/25 03:12 MPV 12.5 fL (7.4-10.4) H 06/16/25 03:12 Neut % (Auto) 71.2 % 06/16/25 03:12 Lymph % (Auto) 12.3 % 06/16/25 03:12 [place] % (Auto) 9.0 % 06/16/25 03:12 Eos % (Auto) 6.8 % 06/16/25 03:12 Baso % (Auto) 0.7 % 06/16/25 03:12 Neut # (Auto) 2.94 10^3/uL (1.8-7.7) 06/16/25 03:12 Lymph # (Auto) 0.5 10^3/uL (0.8-4.8) L 06/16/25 03:12 [place] # (Auto) 0.4 10^3/uL (0.2-0.9) 06/16/25 03:12 Eos # (Auto) 0.3 10^3/uL (0.0-0.8) 06/16/25 03:12 Baso # (Auto) 0.0 10^3/uL (0.0-0.1) 06/16/25 03:12 Nucleated RBC % (auto) 0 % 06/16/25 03:12 Nucleated RBCs # 0.0 /100WBC 06/16/25 03:12 PT 16.90 SECONDS (12.1-14.9) H 06/15/25 16:18 INR 1.29 (0.8-1.2) H 06/15/25 16:18 APTT 32.0 SECONDS (23.9-36.7) 06/15/25 16:18 Sodium 133 mmol/L (136-145) L 06/16/25 03:12 Potassium 3.9 mmol/L (3.5-5.1) 06/16/25 03:12 Chloride 95 mmol/L (98-107) L 06/16/25 03:12 Carbon Dioxide 28 mmol/L (22-29) 06/16/25 03:12 Anion Gap 13.9 (5-19) 06/16/25 03:12 BUN 18 mg/dL (6-20) 06/16/25 03:12 Creatinine 1.0 mg/dL (0.7-1.2) 06/16/25 03:12 GFR Calculation 78.5 mL/min (90-130) L 06/16/25 03:12 Glucose 110 mg/dL (65-115) 06/16/25 03:12 Estimat Average Glucose 105 06/15/25 16:18 Hemoglobin A1c 5.3 % (4.0-6.0) 06/15/25 16:18 Calculated Osmolality 279 mOsm/kg (285-295) L 06/16/25 03:12 Calcium 8.8 mg/dL (8.5-10.5) 06/16/25 03:12 Magnesium 1.4 mg/dL (1.7-2.3) L 06/15/25 17:08 Total Bilirubin 2.3 mg/dL (0.15-1.2) H 06/16/25 03:12 AST 46 U/L (0-40) H 06/16/25 03:12 ALT 33 U/L (0-41) 06/16/25 03:12 Alkaline Phosphatase 98 U/L (40-130) 06/16/25 03:12 Troponin T Baseline 73 ng/L (0-15) H 06/15/25 16:18 Troponin T 60 Minute 64.72 ng/L (0-15) H 06/15/25 17:08 Delta Troponin T -8.28 ABS# (0-10) L 06/15/25 17:08 Troponin T Hi Sens 6Hr 70.60 ng/L (0-15) H 06/15/25 21:53 Troponin T Hi Sens 6Hr Delta -2.40 ng/L (0-12) L 06/15/25 21:53 NT-Pro-B Natriuret Pep 61 pg/mL (0-125) 06/15/25 16:18 Total Protein 6.5 g/dL (6.6-8.7) L 06/16/25 03:12 Albumin 3.9 g/dL (3.5-5.2) 06/16/25 03:12 Globulin 2.6 g/dL (1.3-4.6) 06/16/25 03:12 Triglycerides 75 mg/dL (0-150) 06/15/25 16:18 Cholesterol 172 mg/dL (0-200) 06/15/25 16:18 LDL Cholesterol, Calc 56 mg/dL (50-129) 06/15/25 16:18 HDL Cholesterol 101 mg/dL (60-100) H 06/15/25 16:18 LDL/HDL Ratio 0.55 RATIO (0.00-3.22) 06/15/25 16:18 Cholesterol/HDL Ratio 1.70 mg/dL (1.0-5.00) 06/15/25 16:18 Lipase 14 U/L (13-60) 06/15/25 16:18 Vitals Last Vital Signs Temp 99 F 06/16/25 13:00 Pulse 90 06/16/25 13:00 Resp 13 06/16/25 13:07 BP 136/77 06/16/25 13:00 Pulse Ox 97 06/16/25 13:07 O2 Del Method Nasal Cannula 06/16/25 13:00 O2 Flow Rate 3 06/16/25 13:00 Discharge Plan Discharge Patient Disposition: Home Condition: Stable Prescriptions: New nadolol 80 mg tablet 120 mg PO DAILY 60 Days Qty: 90 0RF aspirin 81 mg capsule 81 mg PO DAILY 90 Days Qty: 90 0RF Continued furosemide 40 mg tablet 40 mg PO BID potassium chloride 10 mEq tablet extended release 10 meq PO BID tamsulosin 0.4 mg capsule 0.4 mg PO BID ropinirole 2 mg tablet 2 mg PO TID pantoprazole 40 mg tablet,delayed release (DR/EC) 40 mg PO DAILY folic acid 1 mg tablet 1 mg PO DAILY albuterol sulfate 90 mcg/actuation HFA aerosol inhaler 2 puff INHALATION QID PRN (Reason: Shortness Of Breath) fluticasone propionate 50 mcg/actuation spray,suspension 2 spray INTRANASAL DAILY spironolactone 50 mg tablet 50 mg PO DAILY lactulose [Constulose] 10 gram/15 mL solution 15 ml PO TID Incruse Ellipta 62.5 mcg/actuation blister with device 1 inh INHALATION DAILY fluticasone furoate-vilanterol [Breo Ellipta] 200-25 mcg/dose blister with device 1 inh INHALATION DAILY Rx Instructions: alternates with trelegy multivitamin Tablet 1 tab PO DAILY glipizide 10 mg Tablet 10 mg PO DAILY tizanidine 4 mg Tablet 4 mg PO TID PRN (Reason: Muscle Spasm) ondansetron HCl [Zofran] 4 mg Tablet 4 mg PO Q6H PRN (Reason: Nausea And Vomiting) scopolamine base 1 mg over 3 days Patch 3 Day 1 patch TRANSDERMAL Q3D PRN (Reason: Nausea And Vomiting) morphine 30 mg Tablet 30 mg PO Q3H PRN (Reason: Pain, Severe) famotidine 40 mg Tablet 40 mg PO BID trazodone 50 mg tablet See Rx Instructions .ROUTE .COMPLEX Rx Instructions: TAKE ONE TABLET BY MOUTH DAILY AT BEDTIME FOR INSOMNIA. CAN TAKE TWO TABLETS IF INSOMNIA IS SEVERE. morphine 60 mg tablet extended release 120 mg PO Q8H PRN (Reason: chronic pain) lorazepam 1 mg tablet 1 mg PO TID PRN (Reason: ANXIETY OR RESTLESSNESS) testosterone cypionate 200 mg/mL oil 200 mg IM Q14D zolpidem [Ambien] 10 mg tablet 10 mg PO BEDTIME Trulicity 0.75 mg/0.5 mL pen injector 0.75 mg SUBCUT Q7D Trelegy Ellipta 200-62.5-25 mcg blister with device 1 ea INHALATION DAILY nitroglycerin 0.4 mg tablet, sublingual See Rx Instructions .ROUTE .COMPLEX Rx Instructions: DISSOLVE ONE TABLET UNDER THE TONGUE EVERY 5 MINUTES NEEDED FOR CHEST PAIN. DO NOT EXCEED A TOTAL OF 3 DOSES IN 15 MINUTES dapagliflozin propanediol [Farxiga] 10 mg tablet 10 mg PO DAILY Discontinued nadolol 80 mg Tablet 80 mg PO DAILY Referrals: Luisa Delgado FNP [Primary Care Provider, Nurse Practitioner] Discharge Diet: Usual diet Discharge Activity: Resume usual activity Patient Instructions: A-fib (Atrial Fibrillation) (DC), Opioid Safety, Patient Portal & Renu Instructions Activity Restrictions/Additional Instructions: Increase your nadolol from 80 mg to 120 mg daily. I rewrote the prescription for you, that would be 1.5 tabs daily. Start the daily aspirin 81 mg that you can take in the morning. Follow-up with your primary care doctor for a repeat EKG and to check your pulse rate, should be between 60-90 regularly. If you have any more chest pain or shortness of breath, irregular heart rate, I advised that he return to the emergency room. Discharge Attestations Time Spent in Discharge Care*: greater than 30 min Quality Metrics Clinical Quality Measures [ Acute Myocardial Infaction { Clinical Trial Participant: No; Contraindication to aspirin: None; Aspirin prescribed; Contraindication to statin: Medical contraindication (LDL is optimal at 56, potential for hepatotoxicity if initiating statin);}] Coding Level of Care Code 29460 Diagnoses Hepatocellular carcinoma C22.0 Atrial fibrillation with rapid ventricular response I48.91 Hypomagnesemia E83.42 Thrombocytopenia D69.6 Transaminitis R74.01 FLORECITA (acute kidney injury) N17.9 BPH (benign prostatic hyperplasia) N40.0
--- NOTE | 2025-06-16 15:05 | PC.NURSE ---
Discharge instructions provided, reviewed and discussed with pt and mac. Prescriptions sent to the pharmacy they chose, [facility]. Pt escorted via W/C to front entrance. Discharged home by POV. Hospice available.
--- NOTE | 2025-06-16 18:29 | USCV_ITS ---
Jigar Connell Age: 50 Gender: M : 1975 Exam Date: 06/16/2025 10:26 Ordering Phys: Ana Yepez NP Technologist: ROXIE [place] [facility] [place]: AFIB BP: 107 / 67 HR: 91 Rhythm: Sinus Technical Quality: Adequate MEASUREMENTS (Male / Female) Normal Values 2D ECHO LV Diastolic Diameter PLAX 6.3 cm 4.2 - 5.9 / 3.9 - 5.3 cm IVS Diastolic Thickness 0.6 cm 0.6 - 1.0 / 0.6 - 0.9 cm IVS Systolic Thickness 0.6 cm LVPW Diastolic Thickness 0.8 cm 0.6 - 1.0 / 0.6 - 0.9 cm LVPW Systolic Thickness 0.8 cm LVOT Diameter 2.1 cm LV Ejection Fraction 2D Teich 36.6 % LV Ejection Fraction MOD 4C 50.5 % LV Ejection Fraction MOD 2C 52.8 % LV Ejection Fraction 2C AL 58.3 % LA Diameter 3.1 cm RA Systolic Volume 4C AL 27.6 ml RA Systolic Volume 4C MOD 27.0 ml LA Sys Volume AL 32.5 cm cubed LA Sys Volume Index AL 16.8 cm cubed/m squared Aorta at Sinotubular Diameter 2.8 cm M-MODE LA Ao Ratio MM 1.4 AV Cusp Separation MM 1.5 cm DOPPLER AV Peak Velocity 139.0 cm/s LVOT Peak Velocity 143.0 cm/s AV Area Cont Eq vti 4.1 cm squared AV Area Cont Eq pk 3.5 cm squared MV Peak Velocity 82.0 cm/s MV Area PHT 5.8 cm squared Mitral E to A Ratio 0.9 TR Peak Velocity 101.0 cm/s TR Peak Gradient 4.1 mmHg TV Peak E Velocity 56.0 cm/s PV Peak Velocity 136.0 cm/s FINDINGS Left Ventricle Normal left ventricular size, systolic function and wall thickness, with no regional wall motion abnormalities. Left ventricular ejection fraction is estimated at 60 %. Normal diastolic function. Right Ventricle Normal right ventricular size and systolic function. Right Atrium Normal right atrial size. Left Atrium Normal left atrial size. IA Septum Normal appearance of the interatrial septum. Mitral Valve Mildly thickened mitral valve. No mitral valve stenosis. Trace mitral valve regurgitation. Aortic Valve Mild aortic valve calcification. No aortic valve stenosis. Mild aortic valve regurgitation. Tricuspid Valve Normal tricuspid valve structure. No tricuspid valve stenosis or regurgitation. Normal pulmonary pressure. Pulmonic Valve Normal pulmonic valve structure. No pulmonic valve stenosis or regurgitation. Pericardium No pericardial effusion. Aorta Normal diameter of the aortic root and ascending thoracic aorta. IVC Normal IVC diameter. CONCLUSIONS Normal left ventricular size, systolic function and wall thickness, with no regional wall motion abnormalities. Left ventricular ejection fraction is estimated at 60 %. Normal diastolic function. Mildly thickened mitral valve. No mitral valve stenosis. Trace mitral valve regurgitation. Mild aortic valve calcification. No aortic valve stenosis. Mild aortic valve regurgitation. There is no pericardial effusion. Right atrial pressure is around 5 mm of mercury. Deion Aldridge MD (Electronically Signed) Final Date: 16 June 2025 19:38 S
== END 2025-06-16 15:05 | disposition hospice, home (50) | DRG 683 ==
LOC: ER 18:27 → ICU 18:37
PROVIDERS: Admitting Provider Internal Medicine; Emergency Provider Emergency Medicine; PCP Nurse Practitioner; Visit Provider Internal Medicine
DX: N17.9 Acute kidney failure, unspecified (principal); C22.8 Malignant neoplasm of liver, primary, unspecified as to type; I85.10 Secondary esophageal varices without bleeding; I48.91 Unspecified atrial fibrillation; Z51.5 Encounter for palliative care; E86.0 Dehydration; D69.59 Other secondary thrombocytopenia; K70.31 Alcoholic cirrhosis of liver with ascites; J44.9 Chronic obstructive pulmonary disease, unspecified; K21.9 Gastro-esophageal reflux disease without esophagitis; I10 Essential (primary) hypertension; N40.0 Benign prostatic hyperplasia without lower urinary tract symptoms; E83.42 Hypomagnesemia; Z79.899 Other long term (current) drug therapy; Z79.84 Long term (current) use of oral hypoglycemic drugs; Z88.0 Allergy status to penicillin; Z88.2 Allergy status to sulfonamides; Z88.8 Allergy status to other drugs, medicaments and biological substances; Z99.81 Dependence on supplemental oxygen
CPT/HCPCS: 36415; 71045; 80053; 80061; 83036; 83690; 83735; 83880; 84484; 85025; 85610; 85730; 93005; 93306; 94640; 96365; 96366; 96367; 96375; 99285; A4222; J0282; J0283; J2405; J3475; J3490; J7030; J7613; J7626; J9999